=== PATIENT | female | born 1985 | race American Indian/Alaskan Native ===

== ENCOUNTER 2016-06-13 23:29 | Inpatient (IN) | payer MEDICAID, OTHER ==
[2016-06-13] MEDS ORDERED: Sodium Chloride 0.9% 10 ML Syringe FLUSH PRN (23:35)
[2016-06-13] MEDS ORDERED: Sodium Chloride 0.9% 1,000 ML IV SCH (23:45)
--- NOTE | 2016-06-14 00:05 | EDM.PDOC ---
ED HPI GENERAL MEDICAL PROBLEM - General Chief Complaint: Drug or Alcohol Abuse Stated Complaint: MED[facility] Time Seen by Provider: 06/13/16 23:33 Source of Information: Reports: Patient, EMS, Family (Sister arrived later and provided some information), Old records, RN notes reviewed History Limitations: Reports: Altered mental status - History of Present Illness INITIAL COMMENTS - FREE TEXT/NARRATIVE: 22.25 EMS arrival, patient unable to provide significant history because of drowsiness Chief complaint Overdose, decreased responsiveness HPI 30-year-old female with history of bipolar disorder and alcohol use disorder, previously admitted at [facility], recently moved into her own place. Was drinking alcohol earlier today and apparently the police were called her place. Neighbor found her this evening at home, decreased responsiveness with pills scattered on the floor in the bathroom and empty pill bottles around the patient. The pill bottles include her own prescriptions as well as those of her sister. Patient is either unable or unwilling to tell us why she took the overdose although she states that she blacked out. Whether time she took excess medications when she was drinking alcohol and "blacked out".. Would not confirm or deny suicidal plans. Very drowsy and hard to get a good history from her. EMS reports that she did have emesis on her clothing and her vital signs are normal. They found her quite drowsy and inserted a nasal trumpet. On arrival here she is able answer some questions but quickly falls asleep again. Her own prescriptions, the following empty bottles were found: #1: fluoxetine 20 mg, 60 tablets prescribed on June 08 #2: Trazodone 50 mg, 60 tablets prescribed June 08 #3: Ibuprofen 800 mg, 30 tablets prescribed May 29 Her sisters prescriptions, the following empty bottles were found: #4 extended-release venlafaxine, 150 mg, 28 tablets prescribed June 05 #5 clonidine 0.1 mg, 28 tablets prescribed June 05 #6 Remeron/mirtazapine 15 mg 14 tablets prescribed June 05 ED ROS GENERAL - Review of Systems Review Of Systems: Unable To Obtain (Altered mental status) ED EXAM, GENERAL - Physical Exam Exam: See Below Exam Limited By: Altered mental status General Appearance: lethargic, other (Vital signs are normal and stable, patient will answer with brief answers appropriately but quickly falls asleep again, no difficulty breathing, no hypoxia) Eye Exam: bilateral eye: EOMI, normal inspection Ears: normal external exam, normal canal Nose: normal inspection, normal mucosa Throat/Mouth: Normal inspection, Normal oropharynx Head: atraumatic, normocephalic Neck: supple. No: lymphadenopathy (R), lymphadenopathy (L) Respiratory/Chest: no respiratory distress, lungs clear, normal breath sounds, no accessory muscle use Cardiovascular: normal peripheral pulses, regular rate, rhythm GI/Abdominal: normal bowel sounds, soft, non tender, no distention, no mass Back Exam: normal inspection Extremities: normal inspection Neurological: normal reflexes, inattentive (Drowsy), slow to respond Psychiatric: other (Drowsy unable to assess) Skin Exam: Warm, Dry, Intact, Normal color, No rash Course - Vital Signs Last Recorded V/S: Last Vital Signs Temp 35.5 C 06/13/16 23:29 Pulse 104 H 06/13/16 23:29 Resp 14 06/13/16 23:29 BP 104/65 06/13/16 23:29 Pulse Ox 90 L 06/13/16 23:29 - Orders/Labs/Meds Orders: Active Orders 24 hr Category Date Time Status Cardiac Monitoring [RC] .As Directed Care 06/13/16 23:35 Active EKG Documentation Completion [RC] ASDIRECTED Care 06/13/16 23:36 Active Overnight Pulse Oximetry [RC] Click to Edit Care 06/13/16 23:36 Active Peripheral IV Care [RC] . DIRECTED Care 06/13/16 23:36 Active DRUG SCREEN, URINE [URCHEM] Stat Lab 06/13/16 23:35 Uncollected HCG QUALITATIVE,URINE [URCHEM] Stat Lab 06/13/16 23:35 Uncollected UA W/MICROSCOPIC [URIN] Stat Lab 06/13/16 23:34 Uncollected Sodium Chloride 0.9% [Normal Saline] 1,000 ml Med 06/13/16 23:45 Active IV ASDIRECTED Sodium Chloride 0.9% [Saline Flush] Med 06/13/16 23:35 Active 10 ml FLUSH ASDIRECTED PRN Peripheral IV Insertion Adult [OM.PC] Routine Oth 06/13/16 23:34 Ordered Pulse Oximetry Continuous Monitoring [OM.PC] Routine Oth 06/13/16 23:35 Ordered EKG 12 Lead [EK] Routine Ther 06/13/16 23:34 Ordered Medication Orders Sodium Chloride (Normal Saline) 1,000 mls @ 250 mls/hr IV ASDIRECTED MERE Last Admin: 06/13/16 23:43 Dose: 250 mls/hr Sodium Chloride (Saline Flush) 10 ml FLUSH ASDIRECTED PRN PRN Reason: Keep Vein Open Last Admin: 06/13/16 23:44 Dose: 10 ml Labs: Laboratory Tests 06/13/16 06/13/16 06/13/16 Range/Units 23:34 23:46 23:46 WBC 4.5 (4.5-11.0) K/uL RBC 4.66 (3.30-5.50) M/uL Hgb 13.9 (12.0-15.0) g/dL Hct 42.4 (36.0-48.0) % MCV 91 (80-98) fL MCH 30 (27-31) pg MCHC 33 (32-36) % Plt Count 284 (150-400) K/uL Sodium 145 (140-148) mmol/L Potassium 3.8 (3.6-5.2) mmol/L Chloride 107 (100-108) mmol/L Carbon Dioxide 27 (21-32) mmol/L Anion Gap 10.6 (5.0-14.0) mmol/L BUN 7 (7-18) mg/dL Creatinine 0.8 (0.6-1.0) mg/dL Est Cr Clr Drug Dosing TNP Estimated GFR (MDRD) > 60 (>60) Glucose 133 H (74-106) mg/dL Calcium 7.7 L (8.5-10.1) mg/dL Total Bilirubin 0.2 (0.2-1.0) mg/dL AST 20 (15-37) U/L ALT 38 (12-78) U/L Alkaline Phosphatase 80 (46-116) U/L Total Protein 7.5 (6.4-8.2) g/dL Albumin 3.8 (3.4-5.0) g/dL Globulin 3.7 H (2.3-3.5) g/dL Albumin/Globulin Ratio 1.0 L (1.2-2.2) Salicylates (2.0-20.0) mg/dL Acetaminophen 0.0 L (10.0-30.0) ug/mL Ethyl Alcohol mg/dL 06/13/16 06/13/16 Range/Units 23:46 23:46 WBC (4.5-11.0) K/uL RBC (3.30-5.50) M/uL Hgb (12.0-15.0) g/dL Hct (36.0-48.0) % MCV (80-98) fL MCH (27-31) pg MCHC (32-36) % Plt Count (150-400) K/uL Sodium (140-148) mmol/L Potassium (3.6-5.2) mmol/L Chloride (100-108) mmol/L Carbon Dioxide (21-32) mmol/L Anion Gap (5.0-14.0) mmol/L BUN (7-18) mg/dL Creatinine (0.6-1.0) mg/dL Est Cr Clr Drug Dosing Estimated GFR (MDRD) (>60) Glucose (74-106) mg/dL Calcium (8.5-10.1) mg/dL Total Bilirubin (0.2-1.0) mg/dL AST (15-37) U/L ALT (12-78) U/L Alkaline Phosphatase (46-116) U/L Total Protein (6.4-8.2) g/dL Albumin (3.4-5.0) g/dL Globulin (2.3-3.5) g/dL Albumin/Globulin Ratio (1.2-2.2) Salicylates 1.4 L (2.0-20.0) mg/dL Acetaminophen (10.0-30.0) ug/mL Ethyl Alcohol 118 mg/dL Meds: Medications Generic Name Dose Route Start Last Admin Trade Name Freq PRN Reason Stop Dose Admin Sodium Chloride 1,000 mls @ 250 mls/hr 06/13/16 23:45 06/13/16 23:43 Normal Saline IV 250 mls/hr ASDIRECTED MERE Administration Sodium Chloride 10 ml 06/13/16 23:35 06/13/16 23:44 Saline Flush FLUSH 10 ml ASDIRECTED PRN Administration Keep Vein Open - Re-Assessments/Exams Free Text/Narrative Re-Assessment/Exam: 06/14/16 00:11 -year-old female with multiple medication overdose of unknown quantity, including tricyclics and SSRIs With notified As expected she will need cardiac and WAREHOUSE CHECKER monitoring for 12 hours because of the extended release medications. Does respond to questions appropriate when she is woken up No signs of acute compromise at this time and she is breathing on her own. EKG shows sinus rhythm, it converted T waves suggest possible left atrial enlargement, rate 69, no acute changes otherwise. Intravenous saline started and labs ordered. Cardiac and oximeter monitoring 06/14/16 00:31 CBC normal glucose 133, x-rays normal except calcium 7.7 Salicylate and acetaminophen screen negative Urine drug screen pending At the level CXVIII Impression Alcohol intoxication Drug overdose, unknown intention Physician community relations officer contacted, ICU admission Departure - Departure Time of Disposition: 00:32 Disposition: Admitted As Inpatient 64 Condition: serious Clinical Impression: Alcoholic intoxication with complication, History of bipolar disorder Drug overdose, multiple drugs Qualifiers: Encounter type: initial encounter Injury intent: undetermined intent Qualified Code(s): T50.904A - Poisoning by unspecified drugs, medicaments and biological substances, undetermined, initial encounter - My Orders Last 24 Hours: My Active Orders 06/13/16 23:34 UA W/MICROSCOPIC [URIN] Stat Peripheral IV Insertion Adult [OM.PC] Routine EKG 12 Lead [EK] Routine 06/13/16 23:35 Cardiac Monitoring [RC] .As Directed DRUG SCREEN, URINE [URCHEM] Stat HCG QUALITATIVE,URINE [URCHEM] Stat Sodium Chloride 0.9% [Saline Flush] 10 ml FLUSH ASDIRECTED PRN Pulse Oximetry Continuous Monitoring [OM.PC] Routine 06/13/16 23:36 EKG Documentation Completion [RC] ASDIRECTED Overnight Pulse Oximetry [RC] Click to Edit Peripheral IV Care [RC] . DIRECTED 06/13/16 23:45 Sodium Chloride 0.9% [Normal Saline] 1,000 ml IV ASDIRECTED - Assessment/Plan Last 24 Hours: My Active Orders 06/13/16 23:34 UA W/MICROSCOPIC [URIN] Stat Peripheral IV Insertion Adult [OM.PC] Routine EKG 12 Lead [EK] Routine 06/13/16 23:35 Cardiac Monitoring [RC] .As Directed DRUG SCREEN, URINE [URCHEM] Stat HCG QUALITATIVE,URINE [URCHEM] Stat Sodium Chloride 0.9% [Saline Flush] 10 ml FLUSH ASDIRECTED PRN Pulse Oximetry Continuous Monitoring [OM.PC] Routine 06/13/16 23:36 EKG Documentation Completion [RC] ASDIRECTED Overnight Pulse Oximetry [RC] Click to Edit Peripheral IV Care [RC] . DIRECTED 06/13/16 23:45 Sodium Chloride 0.9% [Normal Saline] 1,000 ml IV ASDIRECTED
[2016-06-14] MEDS: Sodium Chloride 0.9% 1,000 ML IV SCH ×3 (02:00→09:53)
--- NOTE | 2016-06-14 02:55 | HP ---
IDENTIFYING DATA: Halle Dumont is a 30-year-old female from [place]. CHIEF COMPLAINT: Drug ingestion. HISTORY OF PRESENT ILLNESS: This adult female has a noted history of chronic depressive illness with previous suicidal ideation with methamphetamine and depressive presentation. She was seen in the emergency room at [facility] one month ago and transferred to [facility] for psychiatric care and discharged after short inpatient stay. She was instructed to arrange follow up with counseling services at [facility]; however, 1st available appointment is noted to be in late July. She reports she was discharged on fluoxetine and trazodone and is using no other medications. She does admit to drinking unspecified amount of alcohol this evening. She had a blackout, and under the influence of alcohol, ingested an unknown number and types of medications, pill bottles that arrived with the patient included her empty fluoxetine and trazodone bottles as well as venlafaxine, clonidine, and Remeron prescriptions used by family members. She is unsure whether she did in fact ingest these medications, has no remembrance of the events of this evening. She reports she has been feeling sad. She had a verbal argument with her sister this evening and sister and her four children left the household. She reportedly was found by a neighbor in a minimally responsive state and emergency medical personnel were summoned at which time, she was transferred to the emergency room for admission. PAST MEDICAL HISTORY: Noted history of substance abuse including methamphetamine and alcohol. She denies use of illicit drugs over the last month. Does admit to alcohol use. She is a G4 female with children ranging in age from 1-6, they currently reside in the household with her. She denies other chronic health problems, specifically denies hypertension, diabetes, cardiac disease, or respiratory disease. HABITS: She is a user of tobacco less than 1/2 pack per day. Caffeine intake is said to be several bottles of carbonated beverages daily. Alcohol use is intermittent though with binge drinking pattern. IMMUNIZATIONS: Status is unknown. SOCIAL HISTORY: She resides with a sister and their children in the [place] [facility]. 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 FAMILY HISTORY: Unable to provide factual information. REVIEW OF SYSTEMS: NEUROLOGIC: No reports of previous strokes or seizures. She denies headaches or visual disturbance. CARDIAC: Denies hypertension, diabetes, or congenital heart disease. RESPIRATORY: No shortness of breath, chest pain, wheeze, or cough. GI: Occasional dyspepsia admitted to by the patient. No current abdominal pain or nausea. Reports of emesis at the household were noted by responding medical staff. : Last menses presented approximately 1-2 weeks ago and normal in presentation. Denies current . MUSCULOSKELETAL: Without arthralgias. PHYSICAL EXAMINATION: GENERAL: Appearance is that of a somnolent, arousable young female, in no acute respiratory distress is noted. VITAL SIGNS: Initial vitals, temperature 35.5, pulse 104, respiratory rate 14, with O2 sats of 90% on room air. Blood pressure 104/65. HEENT: Seems to show reasonable hearing acuity canals and TMs are normal. Pupils are reactive to light and direct and consensual response. She is somnolent and ocular gaze is dysconjugate. No facial asymmetry is noted. Oral mucosa is moist and pink. No perioral cyanosis. NECK: No adenopathy or thyromegaly. Brisk carotid pulses. No bruits or JVD. No nuchal rigidity. LUNGS: Clear resonant, non-tachypneic with easy respiratory effort. HEART: Regular without murmurs or gallops noted. ABDOMEN: Soft and nontender. No obvious organomegaly. /RECTAL: Omitted. EXTREMITIES: Warm and pink. No pitting edema. Nondiaphoretic. No cyanosis. Good radial and posterior tibial pulses. No ischemic skin changes. Brisk capillary refill. The patient is somnolent, arousable, oriented to place and person, disoriented to time, able to provide limited factual information with amnesia surrounding the events of her drug ingestion. LABORATORY DATA: WBC 4.5, hemoglobin 13.9, hematocrit 42.4, platelet count 284,000. Sodium 145, potassium 3.8, BUN 7, creatinine 0.8, glucose 133, calcium 7.7, alkaline phosphatase 80, AST 20. Salicylate level low therapeutic range at 1.4. Acetaminophen level is zero. Ethyl alcohol level is noted to be at 0.118. The patient currently unable to provide urine sample for drug screen, this is pending. IMPRESSIONS: 1. Multidrug ingestion expected with potential ingestion of SSRIs/SNAs by evidence found at the scene. 2. History of chronic alcohol abuse with binge drinking pattern. 3. History of methamphetamine use, the patient denies current use. PLAN: The patient is admitted to the ICU for continued cardiac monitoring. We will continue with telemetry and monitor continuous pulse oximetry. Provide sips of liquids and dietary intake as tolerated as well as O2 if necessary for hypoxia. IV fluids will include normal saline. Urine drug screen to be collected and run when able. The patient appears quite somnolent and cooperative; however, if combative or threatening behavior develops, we will need to consider placement of 72-hour hold. We will request behavioral health assessment in the morning to evaluate for potential inpatient versus outpatient cares. If physical status is stable at 18 hours, would anticipate discharge from acute inpatient hospital stay. DISPOSITION: To inpatient psychiatric or home with outpatient followup status. Alberto Pearson MD /[id number]
--- NOTE | 2016-06-14 08:34 | PN ---
DATE OF SERVICE: 06/14/2016 SUBJECTIVE: A 30-year-old female with a history of chronic depressive illness, as well as substance abuse, and alcohol abuse, was admitted in the early childhood hours following multidrug ingestion. She remains somnolent, primarily sleeping through the night. No restless, agitated, or combative behavior. She notes mild abdominal upset this morning. She denies pain or shortness of breath. OBJECTIVE: VITAL SIGNS: Blood pressure 83/55, respiratory rate 16, and O2 saturations 95% on supplemental O2 at 2 L/minute by nasal cannula, heart rate 72 with normal sinus rhythm maintained by cardiac monitoring. GENERAL: She is oriented to person and place. LUNGS: Clear. HEART: Regular without murmurs or gallops. ABDOMEN: Soft and nontender. No organomegaly. LABORATORY DATA: Unable yet to provide urine for a urine drug screen. IMPRESSION AND PLAN: 1. Multidrug ingestion in the adult female with known history of chronic depression. We will request Psychology review today to discuss disposition. If hemodynamics status remain stable over the next 6 to 12 hours, discharge from acute medical setting would be reasonable, need to decide on followup for behavioral health issues. 2. History of substance abuse. The patient had reported abstinence from use of methamphetamines since [facility]. She does admit to binge drinking with alcohol use yesterday and noted blood alcohol level of 0.118. Alberto Pearson MD /[id number]
--- NOTE | 2016-06-14 10:12 | PCM.PN ---
- General Info Date of Service: 06/14/16 - Review of Systems General: Reports: No Symptoms Pulmonary: Reports: no symptoms Cardiovascular: Reports: No Symptoms Gastrointestinal: Reports: No symptoms Neurological: Reports: No Symptoms Psychiatric: Reports: depression, suicidal ideation Systems Review Comment:: This patient is a 30-year-old woman who was admitted through the emergency department following a drug overdose and apparent suicide attempt. She has a known history of depression and recent suicide attempt. She remains fairly lethargic and is unable to provide significant history at this time. She has remained hemodynamically stable and has been afebrile. - Patient Data Vitals - most recent: Last Vital Signs Temp 98.6 F 06/14/16 08:00 Pulse 67 06/14/16 09:00 Resp 18 06/14/16 09:00 BP 94/62 06/14/16 09:00 Pulse Ox 98 06/14/16 09:00 Weight - most recent: 200 lb I&O - last 24 hours: Intake & Output 06/13/16 06/14/16 06/14/16 22:59 06:59 14:59 Intake Total 619 Balance 619 Med Orders - Current: Current Medications Sodium Chloride (Normal Saline) 1,000 mls @ 125 mls/hr IV ASDIRECTED MERE Last Admin: 06/14/16 09:53 Dose: 125 mls/hr Sodium Chloride (Saline Flush) 10 ml FLUSH ASDIRECTED PRN PRN Reason: Keep Vein Open Last Admin: 06/13/16 23:44 Dose: 10 ml Discontinued Medications Sodium Chloride (Normal Saline) 1,000 mls @ 250 mls/hr IV ASDIRECTED [facility] Last Admin: 06/13/16 23:43 Dose: 250 mls/hr - Exam General: lethargic Lungs: Clear to auscultation, Normal respiratory effort Cardiovascular: Regular Rate, Regular Rhythm, No Murmurs Abdomen: bowel sounds present, soft, no tenderness, no distension Extremities: no edema Skin: warm, dry, intact - Problem List Review Problem List Initiated/Reviewed/Updated: Yes - Plan Plan:: ASSESSMENT AND PLAN POLYDRUG OVERDOSE SUICIDE ATTEMPT-amounts and specific medication unknown, urine drug screen is still pending. Overall she is been hemodynamically stable since admission, blood pressure somewhat borderline but has responded to IV fluids. -Psychological assessment pending -Urine drug screen pending -Will likely require inpatient psychiatric assessments and treatment
[2016-06-14 16:13] VITALS: BP 103/64
--- NOTE | 2016-06-14 17:42 | PCM.DCSUM1 ---
Discharge Summary - Hospital Course Brief History: This patient is a 30-year-old woman who is admitted through the emergency department following a drug overdose and apparent suicide attempt. - Discharge Data Discharge Date: 06/14/16 Discharge Disposition: Home, Self-Care 01 Condition: Fair - Discharge Diagnosis/Problem(s) (1) Drug overdose, multiple drugs SNOMED Code(s): 55504418 ICD Code: T50.901A - POISONING BY UNSP DRUG/MEDS/BIOL SUBST, ACCIDENTAL, INIT Status: Acute Current Visit: Yes Qualifiers: Encounter type: initial encounter Injury intent: undetermined intent Qualified Code(s): T50.904A - Poisoning by unspecified drugs, medicaments and biological substances, undetermined, initial encounter (2) Alcoholic intoxication with complication SNOMED Code(s): 24734274 ICD Code: F10.929 - ALCOHOL USE, UNSPECIFIED WITH INTOXICATION, UNSPECIFIED Status: Acute Current Visit: Yes (3) History of bipolar disorder SNOMED Code(s): 792621898 ICD Code: Z86.59 - PERSONAL HISTORY OF OTHER MENTAL AND BEHAVIORAL DISORDERS Status: Acute Current Visit: Yes - Patient Summary/Data Hospital Course: Ms. Dumont is a 30-year-old woman who was brought into the emergency department by EMS after apparent polydrug overdose in a suicide attempt. She was admitted to the hospital to the intensive care unit for monitoring and given IV fluids for hydration. Initially she was very lethargic and sedated but later became alert and interactive. She was hemodynamically stable and cleared medically from the overdose. Mental health evaluation was obtained and she was felt to be safe for discharge to home with outpatient mental health followup. Followup appointment should be scheduled with her primary care provider within one week. Activity will be as tolerated and she will resume her usual diet. - Patient Instructions Diet: Usual Diet as Tolerated Activity: As Tolerated Other/Special Instructions: Schedule followup appointment with primary care provider within one week. Schedule followup with mental health as recommended by mental health evaluation. - Discharge Plan Home Medications: Home Meds FLUoxetine [PROzac] 40 mg PO DAILY 06/14/16 [History] Ibuprofen 800 mg PO TID PRN 06/14/16 [History] traZODone 100 mg PO BEDTIME 06/14/16 [History] Referrals: PCP,None [Primary Care Provider] - - Patient Data Vitals - Most Recent: Last Vital Signs Temp 98.6 F 06/14/16 08:00 Pulse 65 06/14/16 17:37 Resp 20 06/14/16 16:35 BP 103/64 06/14/16 16:35 Pulse Ox 90 L 06/14/16 16:35 Weight - Most Recent: 200 lb I&O - Last 24 hours: Intake & Output 06/14/16 06/14/16 06/14/16 06:59 14:59 22:59 Intake Total 619 360 Output Total 850 Balance 619 -490 Lab Results - Last 24 hrs: Laboratory Results - last 24 hr 06/14/16 06/14/16 06/14/16 Range/Units 13:13 13:13 13:13 Urine Color Yellow Urine Appearance Slightly cloudy Urine pH 6.0 (4.5-8.0) Ur Specific [place] 1.020 (1.008-1.030) Urine Protein Negative (NEGATIVE) mg/dL Urine Glucose (UA) Normal (NEGATIVE) mg/dL Urine Ketones Negative (NEGATIVE) mg/dL Urine Occult Blood Negative (NEGATIVE) Urine Nitrite Negative (NEGATIVE) Urine Bilirubin Negative (NEGATIVE) Urine Urobilinogen Normal (NORMAL) mg/dL Ur Leukocyte Esterase Negative (NEGATIVE) Urine RBC Not seen (0-5) Urine WBC 0-5 (0-5) Ur Epithelial Cells Rare Amorphous Sediment Few Urine Bacteria Rare Urine Mucus Few Urine HCG, Qual Negative Urine Opiates Screen Negative (NEGATIVE) Ur Oxycodone Screen Negative (NEGATIVE) Urine Methadone Screen Negative (NEGATIVE) Ur Propoxyphene Screen Negative (NEGATIVE) Ur Barbiturates Screen Negative (NEGATIVE) Ur Tricyclics Screen Negative (NEGATIVE) Ur Phencyclidine Scrn Negative (NEGATIVE) Ur Amphetamine Screen Negative (NEGATIVE) U Methamphetamines Scrn Negative (NEGATIVE) Urine MDMA Screen Negative (NEGATIVE) U Benzodiazepines Scrn Negative (NEGATIVE) U Cocaine Metab Screen Negative (NEGATIVE) U Marijuana (THC) Screen Negative (NEGATIVE) Med Orders - Current: Current Medications Sodium Chloride (Normal Saline) 1,000 mls @ 125 mls/hr IV ASDIRECTED MERE Last Admin: 06/14/16 09:53 Dose: 125 mls/hr Sodium Chloride (Saline Flush) 10 ml FLUSH ASDIRECTED PRN PRN Reason: Keep Vein Open Last Admin: 06/13/16 23:44 Dose: 10 ml Discontinued Medications Sodium Chloride (Normal Saline) 1,000 mls @ 250 mls/hr IV ASDIRECTED MERE Last Admin: 06/13/16 23:43 Dose: 250 mls/hr *Q Meaningful Use (DIS) - VTE *Q VTE Criteria *Q: - Stroke *Q Stroke Criteria *Q: - AMI *Q AMI Criteria *Q:
== END 2016-06-14 18:38 | disposition home or self-care (01) | DRG 918 ==
LOC: JP.ED 23:29 → JP.ICU 06-14 00:33
PROVIDERS: ADMIT Family Medicine; ATTEND Hospitalist
DX: T50.902A Poisoning by unspecified drugs, medicaments and biological substances, intentional self-harm, initial encounter (principal); F10.129 Alcohol abuse with intoxication, unspecified; Z86.59 Personal history of other mental and behavioral disorders; F17.210 Nicotine dependence, cigarettes, uncomplicated; Y90.5 Blood alcohol level of 100-119 mg/100 ml; F32.9 Major depressive disorder, single episode, unspecified; Z87.898 Personal history of other specified conditions
CPT/HCPCS: 36415; 80053; 80305; 81001; 81025; 85027; 93005; 96360; 96361; 99285; 99285-25; G0480; J7040; J7050

== ENCOUNTER 2018-12-01 18:23 | Emergency (ER) | payer MEDICAID ==
[2018-12-01 18:55] VITALS: BP 117/71; PULSE 84
--- NOTE | 2018-12-01 19:09 | EDM.PDOC ---
ED HPI GENERAL MEDICAL PROBLEM - General Chief Complaint: General Stated Complaint: FEVER,SORE THROAT,BODY ACHES Time Seen by Provider: 12/01/18 19:03 Source of Information: Reports: Patient, Family, RN Notes Reviewed History Limitations: Reports: No Limitations - History of Present Illness INITIAL COMMENTS - FREE TEXT/NARRATIVE: 33-year-old female presents emergency department today complaint of fever and chills body aches sore throat and cough that has been going on for about 5 days , denies any sick contacts denies flu shot - Related Data Allergies Allergy/AdvReac Type Severity Reaction Status Date / Time No Known Allergies Allergy Verified 12/01/18 18:55 Home Meds: Home Meds NK [No Known Home Meds] 12/01/18 [History] Past Medical History HEENT History: Reports: 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 Unable to obtain if it was a suicide attempt. 05/09/2016 Endocrine/Metabolic History: Reports: Obesity/BMI 30+ - Infectious Disease History Infectious Disease History: Reports: Chicken Pox - Past Surgical History Head Surgeries/Procedures: Reports: None HEENT Surgical History: Reports: Eye Surgery Endocrine Surgical History: Reports: None Dermatological Surgical History: Reports: None Social & Family History - Tobacco Use Smoking Status *Q: Current Every Day Smoker Years of Tobacco use: 10 Packs/Tins Daily: 0.2 Second Hand Smoke Exposure: No - Caffeine Use Caffeine Use: Reports: Soda - Recreational Drug Use Recreational Drug Use: No ED ROS GENERAL - Review of Systems Review Of Systems: See Below Constitutional: Reports: Fever, Chills, Other (Body aches) HEENT: Reports: Throat Pain, Throat Swelling Respiratory: Reports: Cough Cardiovascular: Reports: No Symptoms GI/Abdominal: Reports: No Symptoms : Reports: No Symptoms ED EXAM, GENERAL - Physical Exam Exam: See Below Free Text/Narrative:: General: Female, not in any distress, alert and oriented x3 HEENT: head is atraumatic normocephalic, eyes pupils equal round reactive to light, sclera clear no conjunctivitis appreciated. Ears tympanic membranes clear and pereira landmarks and light reflex are present bilaterally canals are clear. Nose no septal deviation, nares are clear, no blood present. Mouth mucosa is moist and pink no erythema or exudate noted in soft palate, tongue is midline uvula is midline, dentition is intact. Neck: Supple no thyromegaly no tracheal deviation. Nodes: Cervical nodes subclavicular nodes nontender no palpable lymphadenopathy noted. Lungs: clear to auscultation bilaterally with symmetrical respirations, no adventitious noise appreciated. CV: Regular rate and rhythm S1 and S2 appreciated no murmurs rubs or gallops noted. Abdomen: Soft, nontender, no palpable masses or organomegaly appreciated, no distention no guarding bowel sounds are present, . Neuro: GCS 15 Skin: Warm and dry, intact Course - Vital Signs Last Recorded V/S: Last Vital Signs Temp 97.7 F 12/01/18 18:56 Pulse 84 12/01/18 18:56 Resp 16 12/01/18 18:56 BP 117/71 12/01/18 18:56 Pulse Ox 94 L 12/01/18 18:56 - Orders/Labs/Meds Orders: Active Orders 24 hr Category Date Time Status CULTURE STREP A CONFIRMATION [] Stat Lab 12/01/18 19:26 Results STREP SCRN A RAPID W CULT CONF [] Stat Lab 12/01/18 19:26 Results Labs: Laboratory Tests 12/01/18 12/01/18 Range/Units 19:15 19:15 WBC 8.7 (4.5-11.0) K/uL RBC 4.71 (3.30-5.50) M/uL Hgb 12.5 (12.0-15.0) g/dL Hct 40.0 (36.0-48.0) % MCV 85 (80-98) fL MCH 27 (27-31) pg MCHC 31 L (32-36) % Plt Count 355 (150-400) K/uL Sodium 139 L (140-148) mmol/L Potassium 3.8 (3.6-5.2) mmol/L Chloride 103 (100-108) mmol/L Carbon Dioxide 26 (21-32) mmol/L Anion Gap 13.8 (5.0-14.0) mmol/L BUN 13 D (7-18) mg/dL Creatinine 0.9 (0.6-1.0) mg/dL Est Cr Clr Drug Dosing 72.17 mL/min Estimated GFR (MDRD) > 60 (>60) Glucose 101 (74-106) mg/dL Calcium 8.7 (8.5-10.1) mg/dL Total Bilirubin 0.2 (0.2-1.0) mg/dL AST 14 L (15-37) U/L ALT 28 (12-78) U/L Alkaline Phosphatase 93 (46-116) U/L Lactate Dehydrogenase 178 (82-234) U/L Total Protein 7.7 (6.4-8.2) g/dL Albumin 3.7 (3.4-5.0) g/dL Globulin 4.0 H (2.3-3.5) g/dL Albumin/Globulin Ratio 0.9 L (1.2-2.2) Departure - Departure Time of Disposition: 20:20 Disposition: Home, Self-Care 01 Condition: Fair Clinical Impression: Viral syndrome - Discharge Information Referrals: Anitha Marcano I DAYCARE TEACHER [Primary Care Provider] - Forms: ED Department Discharge Additional Instructions: continue to use Tylenol or Motrin as needed for fever control, Please followup with your primary care provider in 3-5 days if not better, please call return to the emergency department with worsening of symptoms. - My Orders Last 24 Hours: My Active Orders 12/01/18 19:26 CULTURE STREP A CONFIRMATION [RM] Stat STREP SCRN A RAPID W CULT CONF [RM] Stat - Assessment/Plan Last 24 Hours: My Active Orders 12/01/18 19:26 CULTURE STREP A CONFIRMATION [RM] Stat STREP SCRN A RAPID W CULT CONF [RM] Stat Plan: Assessment Acuity = acute Site and laterality = viral syndrome Etiology = unknown Manifestations = fever, body aches Location of injury = Home Lab values = CBC, CMP, LDH all within normal limits rapid strep is negative cultures pending influenza negative chest x-ray no acute process Plan Recommend symptomatic care at this time follow-up primary care 3-5 days if not better This note was dictated using [employer] voice recognition software please call with any questions on syntax or grammar.
--- NOTE | 2018-12-01 20:16 | CRLCR ---
INDICATION: Fever and cough. TECHNIQUE: PA and lateral. COMPARISON: None. FINDINGS: Lungs and pleural spaces clear. Heart size and pulmonary vasculature within normal limits. No significant osseous abnormality. IMPRESSION: Negative chest. Dictated by Gustavo Caba MD @ Dec 01 2018 8:13PM Signed by Dr. Gustavo Caba @ Dec 01 2018 8:13PM
== END 2018-12-01 20:25 | disposition home or self-care (01) ==
LOC: JP.ED 18:23
DX: B34.9 Viral infection, unspecified (principal); F17.210 Nicotine dependence, cigarettes, uncomplicated; E66.9 Obesity, unspecified; Z68.37 Body mass index [BMI] 37.0-37.9, adult
CPT/HCPCS: 36415; 71046; 80053; 83615; 85027; 87081; 87804; 87804-59; 87880-QW; 99282; 99283-25

== ENCOUNTER 2019-01-17 20:02 | Inpatient (IN) | payer MEDICAID ==
--- NOTE | 2019-01-17 21:03 | EDM.PDOC ---
ED HPI GENERAL MEDICAL PROBLEM - General Chief Complaint: Upper Extremity Injury/Pain Stated Complaint: FELL HURT ARM Time Seen by Provider: 01/17/19 21:32 - History of Present Illness INITIAL COMMENTS - FREE TEXT/NARRATIVE: 33 years old female patient presented with chief complaint of erythema, swelling and tenderness of both antecubital fossa. Worse on the right side. Patient stated that she has been sober for almost 1 year from meth . she recently relapsed and has been shooting and using IV drugs for the last few days. Methamphetamine. Denies any other drugs. Denies any fever. Stated that she is not able to move her right elbow. Denies any chest pain or shortness breath. Denies any palpitation. Denies any abdominal pain diarrhea or constipation. Denies any urinary symptom. 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 not to long ago. Unable to obtain if it was a suicide attempt. 05/09/2016 Endocrine/Metabolic History: Reports: Obesity/BMI 30+ - Infectious Disease History Infectious Disease History: Reports: Chicken Pox - Past Surgical History Head Surgeries/Procedures: Reports: None HEENT Surgical History: Reports: Eye Surgery Endocrine Surgical History: Reports: None Dermatological Surgical History: Reports: None Social & Family History - Tobacco Use Smoking Status *Q: Current Every Day Smoker Years of Tobacco use: 14 Packs/Tins Daily: 0.5 Used Tobacco, but Quit: No Second Hand Smoke Exposure: Yes - Caffeine Use Caffeine Use: Reports: Soda - Recreational Drug Use Recreational Drug Use: Yes Drug Use in Last 12 Months: Yes Recreational Drug Type: Reports: Methamphetamine Recreational Drug Use Frequency: Rarely Review of Systems - Review of Systems Review Of Systems: Comprehensive ROS is negative, except as noted in HPI. ED EXAM, GENERAL - Physical Exam Exam: See Below Exam Limited By: No Limitations General Appearance: Alert, WD/WN, No Apparent Distress Nose: Normal Inspection, Normal Mucosa, No Blood Head: Atraumatic, Normocephalic Cardiovascular: Normal Peripheral Pulses, Regular Rate, Rhythm, No Edema, No Gallop, No JVD, No Murmur, No Rub GI/Abdominal: Normal Bowel Sounds, Soft, Non-Tender, No Organomegaly, No Distention, No Abnormal Bruit, No Mass Extremities: Other (Area of erythema, tenderness, induration, swelling of the right antecubital area. No discharge. CMS intact.) Neurological: Alert, Oriented, CN II-XII Intact, Normal Cognition, Normal Gait, Normal Reflexes, No Motor/Sensory Deficits Course - Vital Signs Last Recorded V/S: Last Vital Signs Temp 36.9 C 01/17/19 20:44 Pulse 105 H 01/17/19 20:44 Resp 16 01/17/19 20:44 BP 138/82 01/17/19 20:44 Pulse Ox 97 01/17/19 20:44 - Orders/Labs/Meds Orders: Active Orders 24 hr Category Date Time Status VL Duplex Upr Ext Veins Ltd Rt [US] Stat Exams 01/17/19 21:49 Ordered CULTURE BLOOD [BC] Urgent Lab 01/17/19 21:30 Received CULTURE BLOOD [BC] Urgent Lab 01/17/19 21:30 Received DRUG SCREEN, URINE [URCHEM] Urgent Lab 01/17/19 21:08 Ordered Enoxaparin [Lovenox] Med 01/17/19 23:00 Once 93.4 mg SUBCUT ONETIME ONE Morphine Med 01/17/19 23:03 Once 4 mg IVPUSH ONETIME ONE Sodium Chloride 0.9% [Normal Saline] 1,000 ml Med 01/17/19 21:45 Active IV ASDIRECTED Vancomycin 1.5 gm Med 01/17/19 22:56 Ordered Sodium Chloride 0.9% [Normal Saline] 250 ml IV ONETIME cefTRIAXone [Rocephin] 2 gm Med 01/17/19 22:59 Ordered Sodium Chloride 0.9% [Normal Saline] 50 ml IV ONETIME Blood Culture x2 Reflex Set [OM.PC] Urgent Oth 01/17/19 21:06 Ordered Medication Orders Enoxaparin Sodium (Lovenox) 93.4 mg SUBCUT ONETIME ONE Stop: 01/17/19 23:01 Sodium Chloride (Normal Saline) 1,000 mls @ 999 mls/hr IV ASDIRECTED MERE Last Admin: 01/17/19 21:41 Dose: 999 mls/hr Ceftriaxone Sodium 2 gm/ (Sodium Chloride) 50 mls @ 100 mls/hr IV ONETIME ONE Stop: 01/17/19 23:28 Vancomycin HCl 1.5 gm/ Sodium (Chloride) 250 mls @ 150 mls/hr IV ONETIME ONE Stop: 01/18/19 00:35 Morphine Sulfate (Morphine) 4 mg IVPUSH ONETIME ONE Stop: 01/17/19 23:04 Labs: Laboratory Tests 01/17/19 01/17/19 01/17/19 Range/Units 21:06 21:30 21:30 WBC 13.3 H (4.5-11.0) K/uL RBC 4.61 (3.30-5.50) M/uL Hgb 12.3 (12.0-15.0) g/dL Hct 39.2 (36.0-48.0) % MCV 85 (80-98) fL MCH 27 (27-31) pg MCHC 31 L (32-36) % Plt Count 313 (150-400) K/uL Neut % (Auto) 78 H (36-66) % Lymph % (Auto) 10 L (24-44) % [place] % (Auto) 8 H (2-6) % Eos % (Auto) 5 H (2-4) % Baso % (Auto) 0 (0-1) % ESR 35 H (0-25) mm/hr Sodium 138 L (140-148) mmol/L Potassium 3.6 (3.6-5.2) mmol/L Chloride 103 (100-108) mmol/L Carbon Dioxide 25 (21-32) mmol/L Anion Gap 13.6 (5.0-14.0) mmol/L BUN 13 (7-18) mg/dL Creatinine 0.8 (0.6-1.0) mg/dL Est Cr Clr Drug Dosing 81.19 mL/min Estimated GFR (MDRD) > 60 (>60) Glucose 104 (74-106) mg/dL Lactic Acid 1.3 (0.4-2.0) mmol/L Calcium 8.6 (8.5-10.1) mg/dL Total Bilirubin 0.3 (0.2-1.0) mg/dL AST 15 (15-37) U/L ALT 28 (12-78) U/L Alkaline Phosphatase 100 (46-116) U/L C-Reactive Protein 10.79 H (0.0-0.3) mg/dL Total Protein 7.9 (6.4-8.2) g/dL Albumin 3.6 (3.4-5.0) g/dL Globulin 4.3 H (2.3-3.5) g/dL Albumin/Globulin Ratio 0.8 L (1.2-2.2) Meds: Medications Generic Name Dose Route Start Last Admin Trade Name Freq PRN Reason Stop Dose Admin Enoxaparin Sodium 93.4 mg 01/17/19 23:00 Lovenox SUBCUT 01/17/19 23:01 ONETIME ONE Sodium Chloride 1,000 mls @ 999 mls/hr 01/17/19 21:45 01/17/19 21:41 Normal Saline IV 999 mls/hr ASDIRECTED MERE Administration Ceftriaxone Sodium 2 gm/ 50 mls @ 100 mls/hr 01/17/19 22:59 Sodium Chloride IV 01/17/19 23:28 ONETIME ONE Vancomycin HCl 1.5 gm/ Sodium 250 mls @ 150 mls/hr 01/17/19 22:56 Chloride IV 01/18/19 00:35 ONETIME ONE Morphine Sulfate 4 mg 01/17/19 23:03 Morphine IVPUSH 01/17/19 23:04 ONETIME ONE Discontinued Medications Generic Name Dose Route Start Last Admin Trade Name Freq PRN Reason Stop Dose Admin Sodium Chloride 1,000 mls @ 999 mls/hr 01/17/19 21:15 Normal Saline IV .BOLUS MERE Morphine Sulfate 4 mg 01/17/19 21:43 01/17/19 21:48 Morphine IVPUSH 01/17/19 21:44 4 mg ONETIME ONE Administration - Radiology Interpretation Free Text/Narrative:: Patient was seen and examined shortly after arrival. Stable. Lab reviewed. Given 1 L normal saline bolus, 4 mg IV morphine 2. Lab and imaging reviewed with the patient. Ultrasound shows DVT and some fluid collection possible early abscess formation. Elevated white count his left shift. Normal lactic acid, afebrile. No sign of severe sepsis or septic shock at this point. Started on vancomycin and Rocephin. Also given 1 dose of Lovenox 1 mg/kg. Case was discussed with Dr. Bonilla hospitalist electrical control assembler and he accepted admission for further management. Patient agrees with the plan. Stable for admission. Departure - Departure Time of Disposition: 23:04 Disposition: Admitted As Inpatient 64 Condition: Good Clinical Impression: DVT (deep venous thrombosis), Cellulitis, IV drug user - Discharge Information *PRESCRIPTION DRUG MONITORING PROGRAM REVIEWED*: Not Applicable Referrals: Anitha Marcano I FORKLIFT TECHNICIAN [Primary Care Provider] - Forms: ED Department Discharge - My Orders Last 24 Hours: My Active Orders 01/17/19 21:06 Blood Culture x2 Reflex Set [OM.PC] Urgent 01/17/19 21:08 DRUG SCREEN, URINE [URCHEM] Urgent 01/17/19 21:30 CULTURE BLOOD [BC] Urgent CULTURE BLOOD [BC] Urgent 01/17/19 21:45 Sodium Chloride 0.9% [Normal Saline] 1,000 ml IV ASDIRECTED 01/17/19 21:49 VL Duplex Upr Ext Veins Ltd Rt [US] Stat 01/17/19 22:56 Vancomycin 1.5 gm Sodium Chloride 0.9% [Normal Saline] 250 ml IV ONETIME 01/17/19 22:59 cefTRIAXone [Rocephin] 2 gm Sodium Chloride 0.9% [Normal Saline] 50 ml IV ONETIME 01/17/19 23:00 Enoxaparin [Lovenox] 93.4 mg SUBCUT ONETIME ONE 01/17/19 23:03 Morphine 4 mg IVPUSH ONETIME ONE - Assessment/Plan Last 24 Hours: My Active Orders 01/17/19 21:06 Blood Culture x2 Reflex Set [OM.PC] Urgent 01/17/19 21:08 DRUG SCREEN, URINE [URCHEM] Urgent 01/17/19 21:30 CULTURE BLOOD [BC] Urgent CULTURE BLOOD [BC] Urgent 01/17/19 21:45 Sodium Chloride 0.9% [Normal Saline] 1,000 ml IV ASDIRECTED 01/17/19 21:49 VL Duplex Upr Ext Veins Ltd Rt [US] Stat 01/17/19 22:56 Vancomycin 1.5 gm Sodium Chloride 0.9% [Normal Saline] 250 ml IV ONETIME 01/17/19 22:59 cefTRIAXone [Rocephin] 2 gm Sodium Chloride 0.9% [Normal Saline] 50 ml IV ONETIME 01/17/19 23:00 Enoxaparin [Lovenox] 93.4 mg SUBCUT ONETIME ONE 01/17/19 23:03 Morphine 4 mg IVPUSH ONETIME ONE
[2019-01-17] MEDS ORDERED: Sodium Chloride 0.9% 1,000 ML IV SCH ×2 (21:15→21:45)
[2019-01-17] MEDS ORDERED: Morphine 4 MG/ML Syringe IVPUSH ONE ×2 (21:43→23:03)
[2019-01-17] MEDS ORDERED: cefTRIAXone 2 GM in Sodium Chloride 0.9% 50 ML IV ONE (22:59)
[2019-01-17] MEDS ORDERED: Enoxaparin 100 MG/1 ML Syringe SUBCUT ONE (23:00)
[2019-01-17] MEDS ORDERED: Water For Injection, Sterile 20 ML ONE ×2 (23:15→23:18)
--- NOTE | 2019-01-17 23:26 | CRLUS ---
INDICATION: Right arm pain. COMPARISON: None available. FINDINGS: Ultrasound of the venous drainage of the right upper extremity shows no evidence of deep venous thrombosis. There is normal antegrade flow from the radial and ulnar veins superiorly through the subclavian and innominate veins. There is normal respiratory variation and compressibility of the veins. There is complete thrombosis of the right cephalic vein at the elbow, with nonocclusive thrombus just below the elbow and also extending superiorly into the mid-lower upper arm. The cephalic vein in the mid and upper arm is widely patent. There is widely patent, easily compressible basilic vein. The right internal jugular vein is widely patent. IMPRESSION: Superficial venous thrombosis of the right cephalic vein extending from below the elbow through the mid-lower portion of the upper arm. Occlusive thrombosis at the elbow, nonocclusive thrombus elsewhere. No sign of deep venous thrombosis of the right upper extremity. No sign of superficial thrombosis involving the basilic vein. Dictated by Vasu Appiah MD @ Jan 17 2019 11:17PM Signed by Dr. Vasu Appiah @ Jan 17 2019 11:23PM
[2019-01-17] MEDS ORDERED: Morphine 2 MG/ML Syringe IVPUSH PRN (23:59)
[2019-01-18] MEDS: Sodium Chloride 0.9% 1,000 ML IV SCH ×4 (00:34→23:31)
[2019-01-18] MEDS: Ibuprofen 600 MG Tab PO PRN ×3 (01:20→16:35)
[2019-01-18] MEDS: Morphine 4 MG/ML Syringe IVPUSH PRN ×2 (01:20→08:24)
--- NOTE | 2019-01-18 01:57 | HP ---
CHIEF COMPLAINT: Bilateral arm pain. HISTORY OF PRESENT ILLNESS: A 33-year-old who has had history of methamphetamine abuse in the past has been clean since September of 2017 up until just a few days ago when she started using IV methamphetamine in her antecubital areas. Started yesterday having swelling and discomfort of both antecubital fossae area with the right side worse than left. Came into the emergency room for further evaluation. She was evaluated by emergency room physician, who felt that she had cellulitis. We did an ultrasound. Initially, from the tech, it looked like a DVT in the right antecubital fossa or in the right arm, but from the radiologist's interpretation looked like superficial thrombophlebitis. The patient initially did receive Lovenox in the emergency room and was found to be just superficial thrombosis. There was soft tissue swelling. No evidence of definite abscess. I was asked to admit the patient for further evaluation and treatment for cellulitis. She did have symptoms on the left side also, but were not as pronounced. PAST MEDICAL HISTORY: She is G4. She has had hospitalization for chemical dependency and overdose in the past. She has had a history of alcohol and methamphetamine abuse. MEDICATIONS: Currently none. ALLERGIES: NONE. SOCIAL HISTORY: She does smoke cigarettes. She denies any current alcohol use, but does admit to the recent IV methamphetamine. FAMILY HISTORY: Unknown. REVIEW OF SYSTEMS: She has had some chills. No chest pain or trouble breathing. No nausea, vomiting, diarrhea, or constipation. No urinary problems reported. No swelling in her legs. She does have swelling in both arms with discomfort. No neurologic complaints reported. OBJECTIVE: VITAL SIGNS: Weight 93 kg. Temp 36.9, pulse 105, blood pressure 138/82, respiratory rate 16, O2 sat 97% on room air. GENERAL: The patient seems to be alert and oriented. Pharynx is clear. NECK: Supple. No adenopathy or thyromegaly. LUNGS: Clear. HEART: Regular without murmurs. ABDOMEN: Soft, nontender. No mass or organomegaly palpated. EXTREMITIES: Lower extremities: There is no edema or pain. No erythema. Did have erythema with swelling into both antecubital fossae, but the right side more pronounced than the left and hurts when she even tries to move her right arm. She does have discomfort in the antecubital fossae of both arms. The venous Doppler showed superficial venous thrombosis of the right cephalic vein extending from below the elbow through the midportion of the upper arm, but Radiology says no DVT was identified. LABORATORY DATA: White count 13.3, hemoglobin 12.3, platelets 313,000, 78% neutrophils, 10% lymphocytes, 8% monocytes. ESR was elevated at 35. Sodium 138, potassium 3.6, chloride 103, BUN is 13, creatinine 0.8, glucose 104. Liver functions were normal. C-reactive protein was elevated at 10.79. ASSESSMENT: 1. Cellulitis to bilateral antecubital fossae. The patient has been started on IV Rocephin and vancomycin in the emergency room, which will continue. We will admit her inpatient and transfer care to the Hospitalist Service. 2. Methamphetamine use, clean since September of 2017, but just recent use with a history of alcohol and methamphetamine abuse in the past. Alexander Bonilla MD /[id number]
[2019-01-18] MEDS: Acetaminophen 325 MG Tab PO PRN ×2 (04:41→17:40)
--- NOTE | 2019-01-18 10:03 | PCM.PN ---
- General Info Date of Service: 01/18/19 Subjective Update: There have been no acute events overnight following admission. Pain in the right antecubital fossa has improved a fair amount but she still has a fair amount of limitation with her range of motion. Temperature curve has normalized this morning. White blood cell count is about the same. No nausea or abdominal pain. Heart rate is slowly improving but blood pressure is trending down but remains in the normal range. Functional Status: Reports: Pain Controlled, Tolerating Diet - Review of Systems General: Reports: Fever Musculoskeletal: Reports: Arm Pain - Patient Data Vitals - Most Recent: Last Vital Signs Temp 36.2 C 01/18/19 07:00 Pulse 91 01/18/19 07:00 Resp 18 01/18/19 07:00 BP 105/52 L 01/18/19 07:00 Pulse Ox 95 01/18/19 07:00 Weight - Most Recent: 94.801 kg I&O - Last 24 Hours: Intake & Output 01/17/19 01/18/19 01/18/19 22:59 06:59 14:59 Intake Total 120 Output Total 600 Balance -480 Lab Results Last 24 Hours: Laboratory Results - last 24 hr 01/17/19 01/17/19 01/17/19 Range/Units 21:06 21:30 21:30 WBC 13.3 H (4.5-11.0) K/uL RBC 4.61 (3.30-5.50) M/uL Hgb 12.3 (12.0-15.0) g/dL Hct 39.2 (36.0-48.0) % MCV 85 (80-98) fL MCH 27 (27-31) pg MCHC 31 L (32-36) % Plt Count 313 (150-400) K/uL Neut % (Auto) 78 H (36-66) % Lymph % (Auto) 10 L (24-44) % Weber % (Auto) 8 H (2-6) % Eos % (Auto) 5 H (2-4) % Baso % (Auto) 0 (0-1) % ESR 35 H (0-25) mm/hr Sodium 138 L (140-148) mmol/L Potassium 3.6 (3.6-5.2) mmol/L Chloride 103 (100-108) mmol/L Carbon Dioxide 25 (21-32) mmol/L Anion Gap 13.6 (5.0-14.0) mmol/L BUN 13 (7-18) mg/dL Creatinine 0.8 (0.6-1.0) mg/dL Est Cr Clr Drug Dosing 81.19 mL/min Estimated GFR (MDRD) > 60 (>60) Glucose 104 (74-106) mg/dL Lactic Acid 1.3 (0.4-2.0) mmol/L Calcium 8.6 (8.5-10.1) mg/dL Total Bilirubin 0.3 (0.2-1.0) mg/dL AST 15 (15-37) U/L ALT 28 (12-78) U/L Alkaline Phosphatase 100 (46-116) U/L C-Reactive Protein 10.79 H (0.0-0.3) mg/dL Total Protein 7.9 (6.4-8.2) g/dL Albumin 3.6 (3.4-5.0) g/dL Globulin 4.3 H (2.3-3.5) g/dL Albumin/Globulin Ratio 0.8 L (1.2-2.2) Urine Opiates Screen (NEGATIVE) Ur Oxycodone Screen (NEGATIVE) Urine Methadone Screen (NEGATIVE) Ur Propoxyphene Screen (NEGATIVE) Ur Barbiturates Screen (NEGATIVE) Ur Tricyclics Screen (NEGATIVE) Ur Phencyclidine Scrn (NEGATIVE) Ur Amphetamine Screen (NEGATIVE) U Methamphetamines Scrn (NEGATIVE) Urine MDMA Screen (NEGATIVE) U Benzodiazepines Scrn (NEGATIVE) U Cocaine Metab Screen (NEGATIVE) U Marijuana (THC) Screen (NEGATIVE) 01/18/19 01/18/19 01/18/19 Range/Units 00:36 04:30 04:30 WBC 13.6 H (4.5-11.0) K/uL RBC 4.35 (3.30-5.50) M/uL Hgb 11.5 L (12.0-15.0) g/dL Hct 37.4 (36.0-48.0) % MCV 86 (80-98) fL MCH 26 L (27-31) pg MCHC 31 L (32-36) % Plt Count 267 (150-400) K/uL Neut % (Auto) (36-66) % Lymph % (Auto) (24-44) % Weber % (Auto) (2-6) % Eos % (Auto) (2-4) % Baso % (Auto) (0-1) % ESR (0-25) mm/hr Sodium 134 L (140-148) mmol/L Potassium 3.6 (3.6-5.2) mmol/L Chloride 103 (100-108) mmol/L Carbon Dioxide 21 (21-32) mmol/L Anion Gap 13.6 (5.0-14.0) mmol/L BUN 5 L D (7-18) mg/dL Creatinine 0.7 (0.6-1.0) mg/dL Est Cr Clr Drug Dosing 92.79 mL/min Estimated GFR (MDRD) > 60 (>60) Glucose 124 H (74-106) mg/dL Lactic Acid (0.4-2.0) mmol/L Calcium 7.7 L (8.5-10.1) mg/dL Total Bilirubin (0.2-1.0) mg/dL AST (15-37) U/L ALT (12-78) U/L Alkaline Phosphatase (46-116) U/L C-Reactive Protein (0.0-0.3) mg/dL Total Protein (6.4-8.2) g/dL Albumin (3.4-5.0) g/dL Globulin (2.3-3.5) g/dL Albumin/Globulin Ratio (1.2-2.2) Urine Opiates Screen Presumptive positive H (NEGATIVE) Ur Oxycodone Screen Negative (NEGATIVE) Urine Methadone Screen Negative (NEGATIVE) Ur Propoxyphene Screen Negative (NEGATIVE) Ur Barbiturates Screen Negative (NEGATIVE) Ur Tricyclics Screen Negative (NEGATIVE) Ur Phencyclidine Scrn Negative (NEGATIVE) Ur Amphetamine Screen Presumptive positive H (NEGATIVE) U Methamphetamines Scrn Presumptive positive H (NEGATIVE) Urine MDMA Screen Presumptive positive H (NEGATIVE) U Benzodiazepines Scrn Negative (NEGATIVE) U Cocaine Metab Screen Negative (NEGATIVE) U Marijuana (THC) Screen Negative (NEGATIVE) Med Orders - Current: Current Medications Acetaminophen (Tylenol) 650 mg PO Q4H PRN PRN Reason: Fever Last Admin: 01/18/19 04:41 Dose: 650 mg Sodium Chloride (Normal Saline) 1,000 mls @ 999 mls/hr IV ASDIRECTED [facility] Last Admin: 01/17/19 21:41 Dose: 999 mls/hr Sodium Chloride (Normal Saline) 1,000 mls @ 125 mls/hr IV ASDIRECTED [facility] Last Admin: 01/18/19 08:22 Dose: 125 mls/hr Vancomycin HCl 1.5 gm/ Sodium (Chloride) 250 mls @ 150 mls/hr IV Q12H [facility] Ibuprofen (Motrin) 600 mg PO Q6H PRN PRN Reason: Pain Last Admin: 01/18/19 08:23 Dose: 600 mg Morphine Sulfate (Morphine) 4 mg IVPUSH Q1H PRN PRN Reason: Pain Last Admin: 01/18/19 08:24 Dose: 4 mg Ondansetron HCl (Zofran) 4 mg IV Q4H PRN PRN Reason: Nausea/Vomiting Discontinued Medications Enoxaparin Sodium (Lovenox) 93.4 mg SUBCUT ONETIME ONE Stop: 01/17/19 23:01 Last Admin: 01/17/19 23:15 Dose: 93.4 mg Sodium Chloride (Normal Saline) 1,000 mls @ 999 mls/hr IV [facility] Ceftriaxone Sodium 2 gm/ (Sodium Chloride) 50 mls @ 100 mls/hr IV ONETIME ONE Stop: 01/17/19 23:28 Last Admin: 01/17/19 23:16 Dose: 100 mls/hr Vancomycin HCl 1.5 gm/ Sodium (Chloride) 250 mls @ 150 mls/hr IV ONETIME ONE Stop: 01/18/19 00:35 Last Admin: 01/17/19 23:53 Dose: 150 mls/hr Sterile Water (Sterile Water For Injection) Confirm Administered Dose 20 mls @ as directed .ROUTE .STK-MED ONE Stop: 01/17/19 23:16 Last Admin: 01/17/19 23:22 Dose: Not Given Sterile Water (Sterile Water For Injection) Confirm Administered Dose 20 mls @ as directed .ROUTE .STK-MED ONE Stop: 01/17/19 23:19 Last Admin: 01/17/19 23:23 Dose: Not Given Morphine Sulfate (Morphine) 4 mg IVPUSH ONETIME ONE Stop: 01/17/19 21:44 Last Admin: 01/17/19 21:48 Dose: 4 mg Morphine Sulfate (Morphine) 4 mg IVPUSH ONETIME ONE Stop: 01/17/19 23:04 Last Admin: 01/17/19 23:08 Dose: 4 mg Morphine Sulfate (Morphine) 2 mg IVPUSH Q1H PRN PRN Reason: Pain - Exam Quality Assessment: No: Supplemental Oxygen General: Alert, Oriented, Cooperative, No Acute Distress, Sedated Lungs: Normal Respiratory Effort Cardiovascular: Regular Rhythm, Tachycardia GI/Abdominal Exam: No Distention Extremities: No Pedal Edema, Increased Warmth (right AC fossa), Other ( induration proximal to AC fossa ) Skin: Warm, Dry Psy/Mental Status: Alert, Normal Affect - Problem List Review Problem List Initiated/Reviewed/Updated: Yes - My Orders Last 24 Hours: My Active Orders 01/18/19 10:02 Potassium Chloride [Klor-Con M20] 40 meq PO ONETIME ONE 01/18/19 11:00 Vancomycin 1.5 gm Sodium Chloride 0.9% [Normal Saline] 250 ml IV Q12H 01/19/19 05:00 BASIC METABOLIC PANEL,BMP [CHEM] Timed CBC W/O DIFF,HEMOGRAM [HEME] Timed (1) - Plan Plan:: ASSESSMENT AND PLAN - Cellulitis of the right antecubital fossa-secondary to IV drug use with infection around the injection site. No evidence for abscess but there is a fair amount of induration. Limited range of motion does raise concern for deeper infection. He does have some associated superficial thrombophlebitis. -Antibiotic coverage with vancomycin -Pain control -Follow-up cultures -Consider repeat imaging to look for abscess if not improving Methamphetamine abuse-recent relapse with IV drug use. -Encourage cessation and offer resources for treatment as available Maintenance issues - - DVT prophylaxis -mechanical - GI prophylaxis -not indicated - Nutrition -regular - Leiva catheter -not indicated Disposition -I would anticipate discharge home after the hospital stay Yared Ferrari M.D.
[2019-01-18] MEDS ORDERED: Potassium Chloride 20 MEQ Tab.ER PO ONE (10:30)
[2019-01-19] MEDS: Morphine 4 MG/ML Syringe IVPUSH PRN ×2 (00:17→02:56)
[2019-01-19] MEDS: Ibuprofen 600 MG Tab PO PRN ×3 (02:55→19:40)
[2019-01-19] MEDS: Acetaminophen 325 MG Tab PO PRN ×2 (05:45→18:06)
[2019-01-19] MEDS: Sodium Chloride 0.9% 1,000 ML IV SCH ×2 (07:22→15:39)
--- NOTE | 2019-01-19 10:27 | PCM.PN ---
- General Info Date of Service: 01/19/19 Subjective Update: No acute events overnight but the patient did have a fever last night that persisted through a fair amount of the evening and overnight hours. Pain in the right antecubital fossa is stable compared to yesterday but swelling appears worse. White blood cell count is now normal. Cultures remain negative. Ultrasound of the right antecubital fossa did show evidence for multiloculated abscess. Functional Status: Reports: Pain Controlled, Tolerating Diet - Review of Systems General: Reports: Fever Musculoskeletal: Reports: Arm Pain (right elbow area ) - Patient Data Vitals - Most Recent: Last Vital Signs Temp 37.3 C 01/19/19 06:56 Pulse 89 01/19/19 06:56 Resp 16 01/19/19 06:56 BP 117/63 01/19/19 06:56 Pulse Ox 91 L 01/19/19 06:56 Weight - Most Recent: 94.801 kg I&O - Last 24 Hours: Intake & Output 01/18/19 01/19/19 01/19/19 22:59 06:59 14:59 Intake Total 2283 2954 1000 Output Total 1100 2000 1300 Balance 1183 954 -300 Lab Results Last 24 Hours: Laboratory Results - last 24 hr 01/19/19 01/19/19 Range/Units 04:00 04:00 WBC 8.8 (4.5-11.0) K/uL RBC 4.15 (3.30-5.50) M/uL Hgb 11.0 L (12.0-15.0) g/dL Hct 36.0 (36.0-48.0) % MCV 87 (80-98) fL MCH 27 (27-31) pg MCHC 31 L (32-36) % Plt Count 306 (150-400) K/uL Sodium 137 L (140-148) mmol/L Potassium 3.8 (3.6-5.2) mmol/L Chloride 104 (100-108) mmol/L Carbon Dioxide 25 (21-32) mmol/L Anion Gap 11.8 (5.0-14.0) mmol/L BUN 5 L (7-18) mg/dL Creatinine 0.6 (0.6-1.0) mg/dL Est Cr Clr Drug Dosing 108.26 mL/min Estimated GFR (MDRD) > 60 (>60) Glucose 107 H (74-106) mg/dL Calcium 7.9 L (8.5-10.1) mg/dL Shravan Results Last 24 Hours: Microbiology 01/17/19 21:30 Aerobic Blood Culture - Preliminary Blood - Venous - Iv Start NO GROWTH AFTER 1 DAY Anaerobic Blood Culture - Preliminary NO GROWTH AFTER 1 DAY 01/17/19 21:30 Aerobic Blood Culture - Preliminary Blood - Venous - Iv Start NO GROWTH AFTER 1 DAY Anaerobic Blood Culture - Preliminary NO GROWTH AFTER 1 DAY Med Orders - Current: Current Medications Acetaminophen (Tylenol) 650 mg PO Q4H PRN PRN Reason: Fever Last Admin: 01/19/19 05:45 Dose: 650 mg Sodium Chloride (Normal Saline) 1,000 mls @ 999 mls/hr IV ASDIRECTED [facility] Last Admin: 01/17/19 21:41 Dose: 999 mls/hr Sodium Chloride (Normal Saline) 1,000 mls @ 125 mls/hr IV ASDIRECTED [facility] Last Admin: 01/19/19 07:22 Dose: 125 mls/hr Vancomycin HCl 1.5 gm/ Sodium (Chloride) 250 mls @ 150 mls/hr IV Q12H [facility] Last Admin: 01/18/19 22:23 Dose: 150 mls/hr Ibuprofen (Motrin) 600 mg PO Q6H PRN PRN Reason: Pain Last Admin: 01/19/19 02:55 Dose: 600 mg Morphine Sulfate (Morphine) 4 mg IVPUSH Q1H PRN PRN Reason: Pain Last Admin: 01/19/19 02:56 Dose: 4 mg Ondansetron HCl (Zofran) 4 mg IV Q4H PRN PRN Reason: Nausea/Vomiting Discontinued Medications Enoxaparin Sodium (Lovenox) 93.4 mg SUBCUT ONETIME ONE Stop: 01/17/19 23:01 Last Admin: 01/17/19 23:15 Dose: 93.4 mg Sodium Chloride (Normal Saline) 1,000 mls @ 999 mls/hr IV .[facility] Ceftriaxone Sodium 2 gm/ (Sodium Chloride) 50 mls @ 100 mls/hr IV ONETIME ONE Stop: 01/17/19 23:28 Last Admin: 01/17/19 23:16 Dose: 100 mls/hr Vancomycin HCl 1.5 gm/ Sodium (Chloride) 250 mls @ 150 mls/hr IV ONETIME ONE Stop: 01/18/19 00:35 Last Admin: 01/17/19 23:53 Dose: 150 mls/hr Sterile Water (Sterile Water For Injection) Confirm Administered Dose 20 mls @ as directed .ROUTE .STK-MED ONE Stop: 01/17/19 23:16 Last Admin: 01/17/19 23:22 Dose: Not Given Sterile Water (Sterile Water For Injection) Confirm Administered Dose 20 mls @ as directed .ROUTE .STK-MED ONE Stop: 01/17/19 23:19 Last Admin: 01/17/19 23:23 Dose: Not Given Morphine Sulfate (Morphine) 4 mg IVPUSH ONETIME ONE Stop: 01/17/19 21:44 Last Admin: 01/17/19 21:48 Dose: 4 mg Morphine Sulfate (Morphine) 4 mg IVPUSH ONETIME ONE Stop: 01/17/19 23:04 Last Admin: 01/17/19 23:08 Dose: 4 mg Morphine Sulfate (Morphine) 2 mg IVPUSH Q1H PRN PRN Reason: Pain Potassium Chloride (Klor-Con M20) 40 meq PO ONETIME ONE Stop: 01/18/19 10:31 Last Admin: 01/18/19 11:44 Dose: 40 meq - Exam Quality Assessment: No: Supplemental Oxygen General: Alert, Oriented, Cooperative, No Acute Distress Lungs: Normal Respiratory Effort Cardiovascular: Regular Rate, Regular Rhythm GI/Abdominal Exam: Soft, No Distention Extremities: Joint Swelling (right elbow ), Increased Warmth (right AC fossa) Psy/Mental Status: Alert, Normal Affect - Problem List Review Problem List Initiated/Reviewed/Updated: Yes - My Orders Last 24 Hours: My Active Orders 01/18/19 11:00 Vancomycin 1.5 gm Sodium Chloride 0.9% [Normal Saline] 250 ml IV Q12H 01/18/19 11:21 Antiembolic Devices [RC] .Routine SCD [Sequential Compression Device] [OM.PC] Routine 01/19/19 10:25 Extremity Non Vascular Rt [US] Urgent 01/20/19 05:00 BASIC METABOLIC PANEL,BMP [CHEM] Timed CBC W/O DIFF,HEMOGRAM [HEME] Timed (1) 01/20/19 10:30 VANCOMYCIN TROUGH [CHEM] Routine - Plan Plan:: ASSESSMENT AND PLAN - Cellulitis of the right antecubital fossa with abscess-secondary to IV drug use with infection around the injection site. She does have some associated superficial thrombophlebitis. Ultrasound today suggested multiloculated abscess. Surgical intervention planned tomorrow. -Antibiotic coverage with vancomycin and Pip/Tazo -Pain control -Follow-up cultures -Consultation with Dr. Marcano for debridement of abscess, surgery planned in the morning Methamphetamine abuse-recent relapse with IV drug use. -Encourage cessation and offer resources for treatment as available Maintenance issues - - DVT prophylaxis -mechanical - GI prophylaxis -not indicated - Nutrition -regular, nothing by mouth after midnight - Leiva catheter -not indicated Disposition -I would anticipate discharge home after the hospital stay Yared Ferrari M.D.
--- NOTE | 2019-01-19 11:51 | CRLUS ---
INDICATION: Antecubital fossa cellulitis and induration. Evaluate for abscess. TECHNIQUE: Ultrasound of the right arm was specific attention to the antecubital fossa in the region of clinical concern COMPARISON: Ultrasound 01/17/2019. FINDINGS: Complex lobulated 4.1 x 2.6 x 3.7 cm fluid collection in the right antecubital fossa in the region of redness is larger and contains areas of soft tissue echogenicity and would be consistent with an abscess in the appropriate clinical context. This fluid collection surrounds the right cephalic vein. The right cephalic vein continues to having a moderate amount of acute clot/thrombus within it. Mild subcutaneous edema with right arm. Remainder negative. IMPRESSION: 1. Complex fluid collection containing debris and soft tissue echogenicity in the soft tissues of the right antecubital fossa in the region of redness has enlarged since 01/17/2019 and surrounds portions of the right cephalic vein. An underlying abscess cannot be excluded. 2. Moderate acute thrombus within the right cephalic vein again noted. 3. Mild subcutaneous edema right arm. Dictated by Ritesh Mata MD @ Jan 19 2019 11:47AM Signed by Dr. Ritesh Mata @ Jan 19 2019 11:49AM
[2019-01-19] MEDS: oxyCODONE 5 MG Tab PO PRN ×3 (13:29→23:23)
[2019-01-19] MEDS: Piperacillin/Tazobactam/Dext 3.375 GM in Premix Bag 1 BAG IV SCH ×2 (13:58→19:30)
[2019-01-20] MEDS: Piperacillin/Tazobactam/Dext 3.375 GM in Premix Bag 1 BAG IV SCH ×4 (01:05→20:53)
[2019-01-20] MEDS: Sodium Chloride 0.9% 1,000 ML IV SCH (02:30)
[2019-01-20] MEDS: oxyCODONE 5 MG Tab PO PRN ×4 (05:07→20:53)
[2019-01-20] MEDS: Ibuprofen 600 MG Tab PO PRN ×2 (05:11→19:28)
[2019-01-20] MEDS: Morphine 4 MG/ML Syringe IVPUSH PRN ×2 (07:48→23:23)
--- NOTE | 2019-01-20 08:12 | HP ---
HISTORY OF PRESENT ILLNESS: Halle is seen in consultation for cellulitis and possible abscess in the right antecubital area. She is a 33-year-old female. History of meth abuse in the past. Has been clean since September 2017. Then, a few days ago, started using IV meth. On 01/16/2019, she started having swelling, redness, warmth in the right antecubital area. She went to the ER to have this evaluated. PAST MEDICAL HISTORY: 1. Impaired vision. 2. 4. 3. Addiction to methamphetamines and alcohol. 4. Anxiety, history of bipolar, depression, panic attacks. 5. Hospitalized recently for suicide attempt and suicidal ideation at [facility]. 6. Obesity. BMI 37. PAST SURGICAL HISTORY: None. SOCIAL HISTORY: Smokes half a pack a day for 14 years, caffeinated beverages, recreational drugs as above. REVIEW OF SYSTEMS: CONSTITUTIONAL: Denies any fever, chills, night sweats, or fatigue. HEENT: Negative. NECK: Negative. CHEST: No chest pain, shortness of breath, fast or irregular heartbeat. LUNGS: No cough. ABDOMEN: No nausea, vomiting, diarrhea, constipation. No red or black stools. GENITOURINARY: Negative. EXTREMITIES: Negative with exception of chief complaint. NEUROLOGIC: No headache, loss of coordination. PSYCHIATRIC: Reports depression. SKIN: As above with abscess cellulitis in right antecubital area. No other rash. Remainder of review of systems negative for any pertinent positives and negatives. OBJECTIVE: GENERAL: Halle Dumont is a 33-year-old female. VITAL SIGNS: Height is 5 feet 3 inches, weight is 209 pounds, BMI is 37. TPR 99.7, 89, 18, blood pressure 122/66. HEENT: Negative. NECK: Supple. HEART: Regular rate and rhythm. LUNGS: Clear. ABDOMEN: Soft, nontender. EXTREMITIES: Negative for peripheral edema. Cellulitis noted in right antecubital area. Unable to fully extend the arm due to increased pain and swelling. NEUROLOGIC: Intact. PSYCHIATRIC: Mood and affect flat. ASSESSMENT: Cellulitis, right antecubital area secondary to IV methamphetamine use. PLAN: 1. Schedule, have consent signed for incision and drainage with debridement of right antecubital abscess. Case to follow on 01/20/2019. General anesthesia. Surgeon, Dr. Ney Marcano. 2. Remain n.p.o. 3. Change IV to D5LR at 125 mL/h. Orders to be written postoperatively. 4. To start incentive spirometer and use 10 times every hour while awake. 5. Because of the patient's history of smoking, we will order DuoNeb for preop. Isabel Villar PA-C /[id number]
[2019-01-20] MEDS: Dextrose 5%-Lactated Ringers 1,000 ML IV SCH ×2 (09:16→23:27)
[2019-01-20] MEDS: Acetaminophen 325 MG Tab PO PRN ×2 (09:24→16:23)
[2019-01-20] MEDS ORDERED: fentaNYL 100 MCG/2 ML SDV ONE (09:29)
[2019-01-20] MEDS ORDERED: Propofol 200 MG/20 ML SDV ONE (09:29)
[2019-01-20] MEDS ORDERED: Midazolam 1 MG/ML 2 ML SDV ONE (09:29)
[2019-01-20] MEDS ORDERED: Meropenem 500 MG SDV ONE (10:27)
[2019-01-20] MEDS ORDERED: Rocuronium 50 MG/5 ML Vial ONE (11:12)
[2019-01-20] MEDS ORDERED: Neostigmine Methylsulfate 1 MG/ML 5 ML Syringe ONE (11:13)
[2019-01-20] MEDS ORDERED: Glycopyrrolate 0.2 MG/ML 5 ML MDV ONE (11:13)
[2019-01-20] MEDS ORDERED: Ondansetron 4 MG/2 ML SDV ONE (11:13)
[2019-01-20] MEDS ORDERED: Dexamethasone 4 MG/ML SDV ONE (11:13)
[2019-01-20] MEDS ORDERED: fentaNYL 250 MCG/5 ML SDV ONE (11:20)
[2019-01-20] MEDS ORDERED: Albuterol/Ipratropium 3.0-0.5 MG/3 ML Neb Soln NEB ONE (12:00)
--- NOTE | 2019-01-20 14:12 | PCM.PN ---
- General Info Date of Service: 01/20/19 Subjective Update: Ms. Dumont went down to surgery earlier today for debridement of ongoing and infection right elbow. Region did start to drain earlier today, at the time of surgery did have deep tissue infection with necrotic tissue. White blood cell count is normal and she has remained afebrile over the last 24 hours. Functional Status: Reports: Tolerating Diet, Ambulating, Urinating - Review of Systems General: Denies: Fever, Weakness, Chills Pulmonary: Reports: No Symptoms Cardiovascular: Reports: No Symptoms Gastrointestinal: Reports: No Symptoms Musculoskeletal: Reports: Arm Pain (Swelling and pain right arm) - Patient Data Vitals - Most Recent: Last Vital Signs Temp 96.5 F 01/20/19 13:00 Pulse 75 01/20/19 13:15 Resp 15 01/20/19 13:15 BP 116/54 L 01/20/19 13:15 Pulse Ox 97 01/20/19 13:15 Weight - Most Recent: 209 lb I&O - Last 24 Hours: Intake & Output 01/19/19 01/20/19 01/20/19 22:59 06:59 14:59 Intake Total 1331 840 Output Total 500 775 Balance 1331 340 -775 Lab Results Last 24 Hours: Laboratory Results - last 24 hr 01/20/19 01/20/19 01/20/19 Range/Units 04:00 04:00 09:47 WBC 8.5 (4.5-11.0) K/uL RBC 3.98 (3.30-5.50) M/uL Hgb 10.6 L (12.0-15.0) g/dL Hct 34.9 L (36.0-48.0) % MCV 88 (80-98) fL MCH 27 (27-31) pg MCHC 30 L (32-36) % Plt Count 313 (150-400) K/uL Sodium 139 L (140-148) mmol/L Potassium 3.9 (3.6-5.2) mmol/L Chloride 104 (100-108) mmol/L Carbon Dioxide 25 (21-32) mmol/L Anion Gap 13.9 (5.0-14.0) mmol/L BUN 7 (7-18) mg/dL Creatinine 0.7 (0.6-1.0) mg/dL Est Cr Clr Drug Dosing 92.79 mL/min Estimated GFR (MDRD) > 60 (>60) Glucose 102 (74-106) mg/dL Calcium 7.6 L (8.5-10.1) mg/dL Urine HCG, Qual Negative Vancomycin Trough (10.0-20.0) ug/mL 01/20/19 Range/Units 10:23 WBC (4.5-11.0) K/uL RBC (3.30-5.50) M/uL Hgb (12.0-15.0) g/dL Hct (36.0-48.0) % MCV (80-98) fL MCH (27-31) pg MCHC (32-36) % Plt Count (150-400) K/uL Sodium (140-148) mmol/L Potassium (3.6-5.2) mmol/L Chloride (100-108) mmol/L Carbon Dioxide (21-32) mmol/L Anion Gap (5.0-14.0) mmol/L BUN (7-18) mg/dL Creatinine (0.6-1.0) mg/dL Est Cr Clr Drug Dosing mL/min Estimated GFR (MDRD) (>60) Glucose (74-106) mg/dL Calcium (8.5-10.1) mg/dL Urine HCG, Qual Vancomycin Trough 7.1 L (10.0-20.0) ug/mL Shravan Results Last 24 Hours: Microbiology 01/20/19 12:04 Gram Stain - Final Arm, Right - Upper 01/17/19 21:30 Aerobic Blood Culture - Preliminary Blood - Venous - Iv Start NO GROWTH AFTER 2 DAYS Anaerobic Blood Culture - Preliminary NO GROWTH AFTER 2 DAYS 01/17/19 21:30 Aerobic Blood Culture - Preliminary Blood - Venous - Iv Start NO GROWTH AFTER 2 DAYS Anaerobic Blood Culture - Preliminary NO GROWTH AFTER 2 DAYS Med Orders - Current: Current Medications Acetaminophen (Tylenol) 650 mg PO Q4H PRN PRN Reason: Fever Last Admin: 01/20/19 09:24 Dose: 650 mg Piperacillin/Tazobactam/ (Dextrose 3.375 gm/ Premix) 50 mls @ 100 mls/hr IV Q6H [facility] Last Admin: 01/20/19 07:49 Dose: 100 mls/hr Dextrose/Lactated Ringer's (Dextrose 5%-Lactated Ringers) 1,000 mls @ 125 mls/ hr IV ASDIRECTED [facility] Last Admin: 01/20/19 09:16 Dose: 125 mls/hr Vancomycin HCl 1.5 gm/ Sodium (Chloride) 250 mls @ 150 mls/hr IV Q8H [facility] Last Admin: 01/20/19 12:35 Dose: 150 mls/hr Ibuprofen (Motrin) 600 mg PO Q6H PRN PRN Reason: Pain Last Admin: 01/20/19 05:11 Dose: 600 mg Morphine Sulfate (Morphine) 4 mg IVPUSH Q1H PRN PRN Reason: Pain Last Admin: 01/20/19 07:48 Dose: 4 mg Ondansetron HCl (Zofran) 4 mg IV Q4H PRN PRN Reason: Nausea/Vomiting Oxycodone HCl (Oxycodone) 5 - 10 mg PO Q4H PRN PRN Reason: Pain Last Admin: 01/20/19 09:25 Dose: 10 mg Discontinued Medications Albuterol/Ipratropium (Duoneb 3.0-0.5 Mg/3 Ml) 3 ml NEB ONETIME ONE Stop: 01/20/19 12:01 Last Admin: 01/20/19 12:51 Dose: 3 ml Dexamethasone (Dexamethasone) Confirm Administered Dose 4 mg .ROUTE .STK-MED ONE Stop: 01/20/19 11:14 Enoxaparin Sodium (Lovenox) 93.4 mg SUBCUT ONETIME ONE Stop: 01/17/19 23:01 Last Admin: 01/17/19 23:15 Dose: 93.4 mg Fentanyl (Sublimaze) Confirm Administered Dose 100 mcg .ROUTE .STK-MED ONE Stop: 01/20/19 09:30 Fentanyl (Sublimaze) Confirm Administered Dose 250 mcg .ROUTE .STK-MED ONE Stop: 01/20/19 11:21 Glycopyrrolate (Robinul) Confirm Administered Dose 1 mg .ROUTE .STK-MED ONE Stop: 01/20/19 11:14 Sodium Chloride (Normal Saline) 1,000 mls @ 999 mls/hr IV .BOLUS MERE Sodium Chloride (Normal Saline) 1,000 mls @ 999 mls/hr IV ASDIRECTED [facility] Last Admin: 01/17/19 21:41 Dose: 999 mls/hr Ceftriaxone Sodium 2 gm/ (Sodium Chloride) 50 mls @ 100 mls/hr IV ONETIME ONE Stop: 01/17/19 23:28 Last Admin: 01/17/19 23:16 Dose: 100 mls/hr Vancomycin HCl 1.5 gm/ Sodium (Chloride) 250 mls @ 150 mls/hr IV ONETIME ONE Stop: 01/18/19 00:35 Last Admin: 01/17/19 23:53 Dose: 150 mls/hr Sterile Water (Sterile Water For Injection) Confirm Administered Dose 20 mls @ as directed .ROUTE .STK-MED ONE Stop: 01/17/19 23:16 Last Admin: 01/17/19 23:22 Dose: Not Given Sterile Water (Sterile Water For Injection) Confirm Administered Dose 20 mls @ as directed .ROUTE .STK-MED ONE Stop: 01/17/19 23:19 Last Admin: 01/17/19 23:23 Dose: Not Given Sodium Chloride (Normal Saline) 1,000 mls @ 125 mls/hr IV ASDIRECTED [facility] Last Admin: 01/20/19 02:30 Dose: 125 mls/hr Vancomycin HCl 1.5 gm/ Sodium (Chloride) 250 mls @ 150 mls/hr IV Q12H [facility] Last Admin: 01/19/19 23:14 Dose: 150 mls/hr Linezolid (Zyvox) Confirm Administered Dose 300 mls @ as directed .ROUTE .STK- MED ONE Stop: 01/20/19 10:28 Linezolid (Zyvox) 600 mg IRR .STK-MED ONE Stop: 01/20/19 11:11 Last Admin: 01/20/19 11:10 Dose: 600 mg Meropenem (Merrem) Confirm Administered Dose 500 mg .ROUTE .STK-MED ONE Stop: 01/20/19 10:28 Midazolam HCl (Versed 1 Mg/Ml) Confirm Administered Dose 2 mg .ROUTE .STK-MED ONE Stop: 01/20/19 09:30 Morphine Sulfate (Morphine) 4 mg IVPUSH ONETIME ONE Stop: 01/17/19 21:44 Last Admin: 01/17/19 21:48 Dose: 4 mg Morphine Sulfate (Morphine) 4 mg IVPUSH ONETIME ONE Stop: 01/17/19 23:04 Last Admin: 01/17/19 23:08 Dose: 4 mg Morphine Sulfate (Morphine) 2 mg IVPUSH Q1H PRN PRN Reason: Pain Neostigmine Methylsulfate (Neostigmine) Confirm Administered Dose 5 mg .ROUTE .STK-MED ONE Stop: 01/20/19 11:14 Ondansetron HCl (Zofran) Confirm Administered Dose 4 mg .ROUTE .STK-MED ONE Stop: 01/20/19 11:14 Potassium Chloride (Klor-Con M20) 40 meq PO ONETIME ONE Stop: 01/18/19 10:31 Last Admin: 01/18/19 11:44 Dose: 40 meq Propofol (Diprivan 20 Ml) Confirm Administered Dose 200 mg .ROUTE .STK-MED ONE Stop: 01/20/19 09:30 Rocuronium [place] (Zemuron) Confirm Administered Dose 50 mg .ROUTE .STK-MED ONE Stop: 01/20/19 11:13 - Exam Quality Assessment: DVT Prophylaxis General: Alert, Oriented, Cooperative, Mild Distress Lungs: Clear to Auscultation, Normal Respiratory Effort Cardiovascular: Regular Rate, Regular Rhythm, No Murmurs GI/Abdominal Exam: Soft, Non-Tender, No Organomegaly, No Distention Extremities: No Pedal Edema, Arm Pain (Surgical dressing in place right arm) - Problem List Review Problem List Initiated/Reviewed/Updated: Yes - Plan Plan:: ASSESSMENT AND PLAN - Cellulitis of the right antecubital fossa with abscess-secondary to IV drug use with infection around the injection site. She does have some associated superficial thrombophlebitis. Postsurgical debridement earlier today -Antibiotic coverage with vancomycin and Pip/Tazo, and culture results -Pain control -Follow-up cultures -Urgent call follow-up per Dr. Marcano Methamphetamine abuse-recent relapse with IV drug use. -Encourage cessation and offer resources for treatment as available Maintenance issues - - DVT prophylaxis -mechanical - GI prophylaxis -not indicated - Nutrition -regular, nothing by mouth after midnight - Leiva catheter -not indicated Disposition -I would anticipate discharge home after the hospital stay
[2019-01-20] MEDS: Lactobacillus Rhamnosus GG (Probiotic) Cap PO SCH ×2 (16:18→21:02)
[2019-01-21] MEDS: Piperacillin/Tazobactam/Dext 3.375 GM in Premix Bag 1 BAG IV SCH ×4 (01:58→20:51)
[2019-01-21] MEDS ORDERED: Lidocaine 1% with EPINEPHrine 1:100,000 50 ML MDV ONE (06:33)
[2019-01-21] MEDS ORDERED: Bupivacaine 0.5% 50 ML MDV ONE (06:33)
[2019-01-21] MEDS ORDERED: Meropenem 500 MG SDV ONE (06:34)
[2019-01-21] MEDS ORDERED: Midazolam 1 MG/ML 2 ML SDV ONE (07:09)
[2019-01-21] MEDS ORDERED: Propofol 200 MG/20 ML SDV ONE (07:09)
[2019-01-21] MEDS ORDERED: fentaNYL 100 MCG/2 ML SDV ONE (07:09)
[2019-01-21] MEDS: Lactobacillus Rhamnosus GG (Probiotic) Cap PO SCH ×2 (08:06→20:56)
[2019-01-21] MEDS: oxyCODONE 5 MG Tab PO PRN ×4 (09:46→22:08)
--- NOTE | 2019-01-21 11:30 | PN ---
DATE OF SERVICE: 01/21/2019 SUBJECTIVE: Halle is postop day 1. She will be going down to the OR for dressing change under IV sedation. Reports pain is controlled. Vital signs have been stable. Oral intake 1670, urine output 3000. REVIEW OF SYSTEMS: Remainder of review of systems negative for any pertinent positives and negatives. OBJECTIVE: GENERAL: Halle Dumont is a 33-year-old female. She is resting in bed. VITAL SIGNS: TPR 97.4, 73, 16. Blood pressure 118/69. HEENT: Negative. NECK: Supple. HEART: Regular rate and rhythm. LUNGS: Clear. EXTREMITIES: Right antecubital dressing is dry and intact. 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 PLAN: Remain n.p.o. Orders to be written post dressing change. We will evaluate p.r.n. or in a.. Isabel Villar PA-C /[id number]
[2019-01-21] MEDS: Ibuprofen 600 MG Tab PO PRN ×2 (13:08→20:58)
--- NOTE | 2019-01-21 13:22 | PCM.PN ---
- General Info Date of Service: 01/21/19 Subjective Update: Ms. Dumont has been stable since yesterday with no significant temperature elevation or hemodynamic instability. She was taken back to the operating room today for dressing change, no further debridement was required. Functional Status: Reports: Tolerating Diet, Ambulating, Urinating - Review of Systems General: Denies: Fever, Chills Pulmonary: Reports: No Symptoms Cardiovascular: Reports: No Symptoms Gastrointestinal: Reports: No Symptoms Musculoskeletal: Reports: Arm Pain - Patient Data Vitals - Most Recent: Last Vital Signs Temp 98.1 F 01/21/19 10:31 Pulse 71 01/21/19 10:31 Resp 16 01/21/19 10:31 BP 119/55 L 01/21/19 10:31 Pulse Ox 93 L 01/21/19 10:31 Weight - Most Recent: 209 lb I&O - Last 24 Hours: Intake & Output 01/20/19 01/21/19 01/21/19 22:59 06:59 14:59 Intake Total 2851 1529 400 Output Total 2787 273 3350 Balance 1326 829 -800 Shravan Results Last 24 Hours: Microbiology 01/17/19 21:30 Aerobic Blood Culture - Preliminary Blood - Venous - Iv Start NO GROWTH AFTER 3 DAYS Anaerobic Blood Culture - Preliminary NO GROWTH AFTER 3 DAYS 01/17/19 21:30 Aerobic Blood Culture - Preliminary Blood - Venous - Iv Start NO GROWTH AFTER 3 DAYS Anaerobic Blood Culture - Preliminary NO GROWTH AFTER 3 DAYS 01/20/19 12:04 Gram Stain - Final Arm, Right - Upper Med Orders - Current: Current Medications Acetaminophen (Tylenol) 650 mg PO Q4H PRN PRN Reason: Fever Last Admin: 01/20/19 16:23 Dose: 650 mg Piperacillin/Tazobactam/ (Dextrose 3.375 gm/ Premix) 50 mls @ 100 mls/hr IV Q6H [facility] Last Admin: 01/21/19 13:09 Dose: 100 mls/hr Vancomycin HCl 1.5 gm/ Sodium (Chloride) 250 mls @ 150 mls/hr IV Q8H [facility] Last Admin: 01/21/19 10:29 Dose: 150 mls/hr Ibuprofen (Motrin) 600 mg PO Q6H PRN PRN Reason: Pain Last Admin: 01/21/19 13:08 Dose: 600 mg Lactobacillus Rhamnosus (Culturelle) 1 cap PO BID [facility] Last Admin: 01/21/19 08:06 Dose: 1 cap Morphine Sulfate (Morphine) 4 mg IVPUSH Q1H PRN PRN Reason: Pain Last Admin: 01/20/19 23:23 Dose: 4 mg Ondansetron HCl (Zofran) 4 mg IV Q4H PRN PRN Reason: Nausea/Vomiting Oxycodone HCl (Oxycodone) 5 - 10 mg PO Q4H PRN PRN Reason: Pain Last Admin: 01/21/19 13:08 Dose: 10 mg Discontinued Medications Albuterol/Ipratropium (Duoneb 3.0-0.5 Mg/3 Ml) 3 ml NEB ONETIME ONE Stop: 01/20/19 12:01 Last Admin: 01/20/19 12:51 Dose: 3 ml Bupivacaine HCl (Marcaine 0.5%) Confirm Administered Dose 50 ml .ROUTE .STK-MED ONE Stop: 01/21/19 06:34 Dexamethasone (Dexamethasone) Confirm Administered Dose 4 mg .ROUTE .STK-MED ONE Stop: 01/20/19 11:14 Enoxaparin Sodium (Lovenox) 93.4 mg SUBCUT ONETIME ONE Stop: 01/17/19 23:01 Last Admin: 01/17/19 23:15 Dose: 93.4 mg Fentanyl (Sublimaze) Confirm Administered Dose 100 mcg .ROUTE .STK-MED ONE Stop: 01/20/19 09:30 Fentanyl (Sublimaze) Confirm Administered Dose 250 mcg .ROUTE .STK-MED ONE Stop: 01/20/19 11:21 Fentanyl (Sublimaze) Confirm Administered Dose 100 mcg .ROUTE .STK-MED ONE Stop: 01/21/19 07:10 Glycopyrrolate (Robinul) Confirm Administered Dose 1 mg .ROUTE .STK-MED ONE Stop: 01/20/19 11:14 Sodium Chloride (Normal Saline) 1,000 mls @ 999 mls/hr IV .BOLUS MERE Sodium Chloride (Normal Saline) 1,000 mls @ 999 mls/hr IV ASDIRECTED [facility] Last Admin: 01/17/19 21:41 Dose: 999 mls/hr Ceftriaxone Sodium 2 gm/ (Sodium Chloride) 50 mls @ 100 mls/hr IV ONETIME ONE Stop: 01/17/19 23:28 Last Admin: 01/17/19 23:16 Dose: 100 mls/hr Vancomycin HCl 1.5 gm/ Sodium (Chloride) 250 mls @ 150 mls/hr IV ONETIME ONE Stop: 01/18/19 00:35 Last Admin: 01/17/19 23:53 Dose: 150 mls/hr Sterile Water (Sterile Water For Injection) Confirm Administered Dose 20 mls @ as directed .ROUTE .STK-MED ONE Stop: 01/17/19 23:16 Last Admin: 01/17/19 23:22 Dose: Not Given Sterile Water (Sterile Water For Injection) Confirm Administered Dose 20 mls @ as directed .ROUTE .STK-MED ONE Stop: 01/17/19 23:19 Last Admin: 01/17/19 23:23 Dose: Not Given Sodium Chloride (Normal Saline) 1,000 mls @ 125 mls/hr IV ASDIRECTED [facility] Last Admin: 01/20/19 02:30 Dose: 125 mls/hr Vancomycin HCl 1.5 gm/ Sodium (Chloride) 250 mls @ 150 mls/hr IV Q12H [facility] Last Admin: 01/19/19 23:14 Dose: 150 mls/hr Dextrose/Lactated Ringer's (Dextrose 5%-Lactated Ringers) 1,000 mls @ 125 mls/ hr IV ASDIRECTED [facility] Last Admin: 01/20/19 23:27 Dose: 125 mls/hr Linezolid (Zyvox) Confirm Administered Dose 300 mls @ as directed .ROUTE .STK- MED ONE Stop: 01/20/19 10:28 Lidocaine/Epinephrine (Xylocaine 1% With Epinephrine 1:100,000) Confirm Administered Dose 50 ml .ROUTE .STK-MED ONE Stop: 01/21/19 06:34 Linezolid (Zyvox) 600 mg IRR .STK-MED ONE Stop: 01/20/19 11:11 Last Admin: 01/20/19 11:10 Dose: 600 mg Meropenem (Merrem) Confirm Administered Dose 500 mg .ROUTE .STK-MED ONE Stop: 01/20/19 10:28 Meropenem (Merrem) Confirm Administered Dose 500 mg .ROUTE .STK-MED ONE Stop: 01/21/19 06:35 Midazolam HCl (Versed 1 Mg/Ml) Confirm Administered Dose 2 mg .ROUTE .STK-MED ONE Stop: 01/20/19 09:30 Midazolam HCl (Versed 1 Mg/Ml) Confirm Administered Dose 2 mg .ROUTE .STK-MED ONE Stop: 01/21/19 07:10 Morphine Sulfate (Morphine) 4 mg IVPUSH ONETIME ONE Stop: 01/17/19 21:44 Last Admin: 01/17/19 21:48 Dose: 4 mg Morphine Sulfate (Morphine) 4 mg IVPUSH ONETIME ONE Stop: 01/17/19 23:04 Last Admin: 01/17/19 23:08 Dose: 4 mg Morphine Sulfate (Morphine) 2 mg IVPUSH Q1H PRN PRN Reason: Pain Neostigmine Methylsulfate (Neostigmine) Confirm Administered Dose 5 mg .ROUTE .STK-MED ONE Stop: 01/20/19 11:14 Ondansetron HCl (Zofran) Confirm Administered Dose 4 mg .ROUTE .STK-MED ONE Stop: 01/20/19 11:14 Potassium Chloride (Klor-Con M20) 40 meq PO ONETIME ONE Stop: 01/18/19 10:31 Last Admin: 01/18/19 11:44 Dose: 40 meq Propofol (Diprivan 20 Ml) Confirm Administered Dose 200 mg .ROUTE .STK-MED ONE Stop: 01/20/19 09:30 Propofol (Diprivan 20 Ml) Confirm Administered Dose 200 mg .ROUTE .STK-MED ONE Stop: 01/21/19 07:10 Rocuronium [place] (Zemuron) Confirm Administered Dose 50 mg .ROUTE .STK-MED ONE Stop: 01/20/19 11:13 - Exam General: Alert, Oriented, Cooperative, Mild Distress Lungs: Clear to Auscultation, Normal Respiratory Effort Cardiovascular: Regular Rate, Regular Rhythm, No Murmurs GI/Abdominal Exam: Soft, Non-Tender, No Organomegaly, No Distention Extremities: Arm Pain (Dressing in place right arm) Sepsis Event Note - Evaluation Sepsis Screening Result: No Definite Risk - Focused Exam Vital Signs: Vital Signs Temp Temp Pulse Pulse Resp BP Pulse Ox 01/21/19 10:31 98.1 F 71 16 119/55 L 93 L 01/21/19 09:15 71 15 109/56 L 94 L 01/21/19 08:45 74 16 115/57 L 94 L 01/21/19 08:30 68 16 125/76 94 L 12/10/19 08:15 69 16 118/64 94 L 01/21/19 08:00 97.4 F 73 16 118/69 91 L 01/21/19 07:51 97.5 F 63 12 114/61 95 01/21/19 07:45 69 10 L 121/64 94 L 01/21/19 07:40 64 12 113/57 L 94 L 01/21/19 07:36 66 11 L 121/60 94 L 01/21/19 07:30 97.2 F 68 10 L 122/66 95 01/21/19 02:00 97.9 F 73 18 106/57 L 93 L Date Exam was Performed: 01/21/19 Time Exam was Performed: 13:18 - Problem List Review Problem List Initiated/Reviewed/Updated: Yes - My Orders Last 24 Hours: My Active Orders 01/20/19 14:30 Lactobacillus Rhamnosus GG [Culturelle] 1 cap PO BID 01/21/19 12:23 Convert IV to Saline Lock [OM.PC] Routine 01/22/19 10:30 CREATININE W/GFR [CHEM] Routine VANCOMYCIN TROUGH [CHEM] Timed - Plan Plan:: ASSESSMENT AND PLAN - Cellulitis of the right antecubital fossa with abscess-secondary to IV drug use with infection around the injection site. She does have some associated superficial thrombophlebitis. We'll send surgical debridement yesterday -Antibiotic coverage with vancomycin and Pip/Tazo, and culture results -Pain control -Follow-up cultures -Urgent call follow-up per Dr. Marcano Methamphetamine abuse-recent relapse with IV drug use. -Encourage cessation and offer resources for treatment as available Maintenance issues - - DVT prophylaxis -mechanical - GI prophylaxis -not indicated - Nutrition -regular, nothing by mouth after midnight - Leiva catheter -not indicated Disposition -I would anticipate discharge home after the hospital stay
[2019-01-21] MEDS: Acetaminophen 325 MG Tab PO PRN (16:25)
[2019-01-21] MEDS ORDERED: Nicotine 14 MG/24 Hr Patch TRDERM ONE (23:45)
[2019-01-22] MEDS: Piperacillin/Tazobactam/Dext 3.375 GM in Premix Bag 1 BAG IV SCH ×4 (01:43→19:14)
[2019-01-22] MEDS: Acetaminophen 325 MG Tab PO PRN ×3 (02:44→19:14)
[2019-01-22] MEDS: oxyCODONE 5 MG Tab PO PRN ×5 (02:44→21:05)
[2019-01-22] MEDS: Ibuprofen 600 MG Tab PO PRN ×3 (07:02→21:05)
[2019-01-22] MEDS: Nicotine 14 MG/24 Hr Patch TRDERM SCH (08:53)
[2019-01-22] MEDS: Lactobacillus Rhamnosus GG (Probiotic) Cap PO SCH ×2 (08:53→20:12)
--- NOTE | 2019-01-22 09:23 | PN ---
DATE OF SERVICE: 01/22/2019 SUBJECTIVE: Halle's pain has been controlled. Her dressing was unpacked and changed this morning. She has no questions or concerns. OBJECTIVE: VITAL SIGNS: TPR 97.2, 50, 20, blood pressure 130/66. HEENT: Negative. NECK: Supple. HEART: Regular rate and rhythm. SKIN: Right antecubital area, less redness noted per Ney Marcano MD, around the actual open area and the packing was removed and will be repacked and redressed by nursing staff. ASSESSMENT: Dressing change under general anesthesia on 01/21/2019, and incision and drainage of abscess, right antecubital area on 01/20/2019. PLAN: 1. Continue dressing changes. 2. We will evaluate p.r.n. or in a.m. Isabel Villar PA-C /[id number]
[2019-01-22] MEDS: Ondansetron 4 MG/2 ML SDV IV PRN ×2 (13:25→22:11)
--- NOTE | 2019-01-22 13:37 | PCM.PN ---
- General Info Date of Service: 01/22/19 Subjective Update: Ms. Dumont been stable since yesterday, per Dr. Marcano wound is improved in appearance with less evidence of infection. Vital signs have been stable and she has remained afebrile. Functional Status: Reports: Tolerating Diet, Ambulating, Urinating - Review of Systems General: Denies: Fever, Chills Pulmonary: Reports: No Symptoms Cardiovascular: Reports: No Symptoms Gastrointestinal: Reports: No Symptoms Musculoskeletal: Reports: Arm Pain - Patient Data Vitals - Most Recent: Last Vital Signs Temp 97 F 01/22/19 13:24 Pulse 62 01/22/19 11:19 Resp 16 01/22/19 11:19 BP 139/83 01/22/19 11:19 Pulse Ox 95 01/22/19 11:19 Weight - Most Recent: 209 lb I&O - Last 24 Hours: Intake & Output 01/21/19 01/22/19 01/22/19 22:59 06:59 14:59 Intake Total 1500 300 50 Output Total 675 750 Balance 825 -450 50 Lab Results Last 24 Hours: Laboratory Results - last 24 hr 01/22/19 Range/Units 10:30 Creatinine 0.9 (0.6-1.0) mg/dL Est Cr Clr Drug Dosing 72.17 mL/min Estimated GFR (MDRD) > 60 (>60) Vancomycin Trough 19.4 (10.0-20.0) ug/mL Shravan Results Last 24 Hours: Microbiology 01/20/19 12:04 Gram Stain - Final Arm, Right - Upper Wound Culture - Preliminary Anaerobic Culture - Preliminary NO GROWTH AFTER 1 DAY 01/17/19 21:30 Aerobic Blood Culture - Preliminary Blood - Venous - Iv Start NO GROWTH AFTER 4 DAYS Anaerobic Blood Culture - Preliminary NO GROWTH AFTER 4 DAYS 01/17/19 21:30 Aerobic Blood Culture - Preliminary Blood - Venous - Iv Start NO GROWTH AFTER 4 DAYS Anaerobic Blood Culture - Preliminary NO GROWTH AFTER 4 DAYS Med Orders - Current: Current Medications Acetaminophen (Tylenol) 650 mg PO Q4H PRN PRN Reason: Fever Last Admin: 01/22/19 11:18 Dose: 650 mg Piperacillin/Tazobactam/ (Dextrose 3.375 gm/ Premix) 50 mls @ 100 mls/hr IV Q6H [facility] Last Admin: 01/22/19 07:46 Dose: 100 mls/hr Vancomycin HCl 1.2 gm/ Sodium (Chloride) 250 mls @ 150 mls/hr IV Q8H [facility] Ibuprofen (Motrin) 600 mg PO Q6H PRN PRN Reason: Pain Last Admin: 01/22/19 13:24 Dose: 600 mg Lactobacillus Rhamnosus (Culturelle) 1 cap PO BID [facility] Last Admin: 01/22/19 08:53 Dose: 1 cap Miscellaneous Information (Remove Patch) 1 ea TRDERM Q24H [facility] Last Admin: 01/22/19 08:54 Dose: Not Given Morphine Sulfate (Morphine) 4 mg IVPUSH Q1H PRN PRN Reason: Pain Last Admin: 01/20/19 23:23 Dose: 4 mg Nicotine (Habitrol) 14 mg TRDERM DAILY [facility] Last Admin: 01/22/19 08:53 Dose: 14 mg Ondansetron HCl (Zofran) 4 mg IV Q4H PRN PRN Reason: Nausea/Vomiting Last Admin: 01/22/19 13:25 Dose: 4 mg Oxycodone HCl (Oxycodone) 5 - 10 mg PO Q4H PRN PRN Reason: Pain Last Admin: 01/22/19 11:17 Dose: 5 mg Discontinued Medications Albuterol/Ipratropium (Duoneb 3.0-0.5 Mg/3 Ml) 3 ml NEB ONETIME ONE Stop: 01/20/19 12:01 Last Admin: 01/20/19 12:51 Dose: 3 ml Bupivacaine HCl (Marcaine 0.5%) Confirm Administered Dose 50 ml .ROUTE .STK-MED ONE Stop: 01/21/19 06:34 Dexamethasone (Dexamethasone) Confirm Administered Dose 4 mg .ROUTE .STK-MED ONE Stop: 01/20/19 11:14 Enoxaparin Sodium (Lovenox) 93.4 mg SUBCUT ONETIME ONE Stop: 01/17/19 23:01 Last Admin: 01/17/19 23:15 Dose: 93.4 mg Fentanyl (Sublimaze) Confirm Administered Dose 100 mcg .ROUTE .STK-MED ONE Stop: 01/20/19 09:30 Fentanyl (Sublimaze) Confirm Administered Dose 250 mcg .ROUTE .STK-MED ONE Stop: 01/20/19 11:21 Fentanyl (Sublimaze) Confirm Administered Dose 100 mcg .ROUTE .STK-MED ONE Stop: 01/21/19 07:10 Glycopyrrolate (Robinul) Confirm Administered Dose 1 mg .ROUTE .[facility] ONE Stop: 01/20/19 11:14 Sodium Chloride (Normal Saline) 1,000 mls @ 999 mls/hr IV .BOLUS MERE Sodium Chloride (Normal Saline) 1,000 mls @ 999 mls/hr IV ASDIRECTED [facility] Last Admin: 01/17/19 21:41 Dose: 999 mls/hr Ceftriaxone Sodium 2 gm/ (Sodium Chloride) 50 mls @ 100 mls/hr IV ONETIME ONE Stop: 01/17/19 23:28 Last Admin: 01/17/19 23:16 Dose: 100 mls/hr Vancomycin HCl 1.5 gm/ Sodium (Chloride) 250 mls @ 150 mls/hr IV ONETIME ONE Stop: 01/18/19 00:35 Last Admin: 01/17/19 23:53 Dose: 150 mls/hr Sterile Water (Sterile Water For Injection) Confirm Administered Dose 20 mls @ as directed .ROUTE .[facility] ONE Stop: 01/17/19 23:16 Last Admin: 01/17/19 23:22 Dose: Not Given Sterile Water (Sterile Water For Injection) Confirm Administered Dose 20 mls @ as directed .ROUTE .[facility] ONE Stop: 01/17/19 23:19 Last Admin: 01/17/19 23:23 Dose: Not Given Sodium Chloride (Normal Saline) 1,000 mls @ 125 mls/hr IV ASDIRECTED [facility] Last Admin: 01/20/19 02:30 Dose: 125 mls/hr Vancomycin HCl 1.5 gm/ Sodium (Chloride) 250 mls @ 150 mls/hr IV Q12H [facility] Last Admin: 01/19/19 23:14 Dose: 150 mls/hr Dextrose/Lactated Ringer's (Dextrose 5%-Lactated Ringers) 1,000 mls @ 125 mls/ hr IV ASDIRECTED [facility] Last Admin: 01/20/19 23:27 Dose: 125 mls/hr Linezolid (Zyvox) Confirm Administered Dose 300 mls @ as directed .ROUTE .[facility] ONE Stop: 01/20/19 10:28 Vancomycin HCl 1.5 gm/ Sodium (Chloride) 250 mls @ 150 mls/hr IV Q8H [facility] Last Admin: 12/11/19 02:35 Dose: 150 mls/hr Lidocaine/Epinephrine (Xylocaine 1% With Epinephrine 1:100,000) Confirm Administered Dose 50 ml .ROUTE .STK-MED ONE Stop: 01/21/19 06:34 Linezolid (Zyvox) 600 mg IRR .STK-MED ONE Stop: 01/20/19 11:11 Last Admin: 01/20/19 11:10 Dose: 600 mg Meropenem (Merrem) Confirm Administered Dose 500 mg .ROUTE .STK-MED ONE Stop: 01/20/19 10:28 Meropenem (Merrem) Confirm Administered Dose 500 mg .ROUTE .STK-MED ONE Stop: 01/21/19 06:35 Midazolam HCl (Versed 1 Mg/Ml) Confirm Administered Dose 2 mg .ROUTE .STK-MED ONE Stop: 01/20/19 09:30 Midazolam HCl (Versed 1 Mg/Ml) Confirm Administered Dose 2 mg .ROUTE .STK-MED ONE Stop: 01/21/19 07:10 Morphine Sulfate (Morphine) 4 mg IVPUSH ONETIME ONE Stop: 01/17/19 21:44 Last Admin: 01/17/19 21:48 Dose: 4 mg Morphine Sulfate (Morphine) 4 mg IVPUSH ONETIME ONE Stop: 01/17/19 23:04 Last Admin: 01/17/19 23:08 Dose: 4 mg Morphine Sulfate (Morphine) 2 mg IVPUSH Q1H PRN PRN Reason: Pain Neostigmine Methylsulfate (Neostigmine) Confirm Administered Dose 5 mg .ROUTE .STK-MED ONE Stop: 01/20/19 11:14 Nicotine (Habitrol) 14 mg TRDERM DAILY@2100 [facility] Nicotine (Habitrol) 14 mg TRDERM ONETIME ONE Stop: 01/21/19 23:46 Last Admin: 01/22/19 00:03 Dose: 14 mg Ondansetron HCl (Zofran) Confirm Administered Dose 4 mg .ROUTE .STK-MED ONE Stop: 01/20/19 11:14 Potassium Chloride (Klor-Con M20) 40 meq PO ONETIME ONE Stop: 01/18/19 10:31 Last Admin: 01/18/19 11:44 Dose: 40 meq Propofol (Diprivan 20 Ml) Confirm Administered Dose 200 mg .ROUTE .STK-MED ONE Stop: 01/20/19 09:30 Propofol (Diprivan 20 Ml) Confirm Administered Dose 200 mg .ROUTE .STK-MED ONE Stop: 01/21/19 07:10 Rocuronium [place] (Zemuron) Confirm Administered Dose 50 mg .ROUTE .STK-MED ONE Stop: 01/20/19 11:13 - Exam General: Alert, Oriented, Cooperative, Mild Distress Lungs: Clear to Auscultation, Normal Respiratory Effort Cardiovascular: Regular Rate, Regular Rhythm, No Murmurs GI/Abdominal Exam: Soft, Non-Tender, No Organomegaly, No Distention Extremities: Arm Pain (Dressing in place right arm) Sepsis Event Note - Evaluation Sepsis Screening Result: No Definite Risk - Focused Exam Vital Signs: Vital Signs Temp Temp Pulse Pulse Resp BP Pulse Ox 01/22/19 13:24 97 F 01/22/19 11:19 97.6 F 62 16 139/83 95 01/22/19 07:23 97.2 F 50 L 20 130/66 93 L 01/22/19 02:37 97.9 F 64 18 113/62 94 L Date Exam was Performed: 01/22/19 Time Exam was Performed: 13:33 - Problem List Review Problem List Initiated/Reviewed/Updated: Yes - My Orders Last 24 Hours: My Active Orders 01/22/19 09:00 Remove Patch 1 ea TRDERM Q24H - Plan Plan:: ASSESSMENT AND PLAN - Cellulitis of the right antecubital fossa with abscess-secondary to IV drug use with infection around the injection site. Less pain today, wound culture showing no growth -Antibiotic coverage with vancomycin and Pip/Tazo, pending culture results -Pain control -Follow-up cultures -Surgical follow-up per Dr. Marcano Methamphetamine abuse-recent relapse with IV drug use. -Encourage cessation and offer resources for treatment as available Maintenance issues - - DVT prophylaxis -mechanical - GI prophylaxis -not indicated - Nutrition -regular, nothing by mouth after midnight - Leiva catheter -not indicated Disposition -I would anticipate discharge home tomorrow
[2019-01-22] MEDS: Vancomycin 1.2 GM in Sodium Chloride 0.9% 250 ML IV SCH ×2 (14:37→21:04)
[2019-01-22] MEDS ORDERED: Nicotine 14 MG/24 Hr Patch TRDERM SCH (21:00)
[2019-01-23] MEDS: Piperacillin/Tazobactam/Dext 3.375 GM in Premix Bag 1 BAG IV SCH ×2 (01:53→08:45)
[2019-01-23] MEDS: oxyCODONE 5 MG Tab PO PRN ×3 (04:27→12:49)
[2019-01-23] MEDS: Vancomycin 1.2 GM in Sodium Chloride 0.9% 250 ML IV SCH (05:46)
[2019-01-23] MEDS: Nicotine 14 MG/24 Hr Patch TRDERM SCH (08:49)
[2019-01-23] MEDS: Lactobacillus Rhamnosus GG (Probiotic) Cap PO SCH (08:50)
[2019-01-23] MEDS: Ciprofloxacin 500 MG Tab PO SCH ×2 (08:50→11:09)
--- NOTE | 2019-01-23 08:54 | PN ---
DATE OF SERVICE: 01/23/2019 SUBJECTIVE: Halle will be discharged per Dr. Vahid Roberts today. She reports pain is controlled. Right antecubital dressing is dry and intact. Vital signs have been stable. REVIEW OF SYSTEMS: Remainder of review of systems negative for any pertinent positives and negatives. OBJECTIVE: GENERAL: Halle is a 33-year-old female. She is alert and orientated. VITAL SIGNS: TPR 95.3, 56, 18, blood pressure 113/70. HEENT: Negative. NECK: Supple. HEART: Regular rate and rhythm. LUNGS: Clear. SKIN: Right antecubital area dressing is dry and intact. ASSESSMENT: 1. Dressing change under general anesthesia on 01/21/2019. 2. Incision and drainage of abscess, right antecubital area on 01/20/2019. 3. Dr. Ney Marcano, surgeon. PLAN: 1. To be discharged on Cipro 500 mg b.i.d. orally for 10 days. 2. Follow up with Ney Marcano MD, at [facility] on 01/29/2019 at 11 a.m. 3. Dressing changes per written order to change once daily after showering, to pack with dry 4x4 using a cotton tip applicator and then put 4x4 gauze, 3 to 4 pieces on top of open wound, secure with wrapping Kerlix around arm and do this once daily. Isabel Villar PA-C /[id number]
[2019-01-23 10:22] VITALS: BP 123/82; PULSE 58
--- NOTE | 2019-01-23 13:13 | PCM.DCSUM1 ---
Discharge Summary - Hospital Course Brief History: Ms. Dumont is a 33-year-old woman who developed an infection in the antecubital fossa of her right hand, secondary to IV drug use. Symptoms became worse and she presented to the emergency department for further evaluation. She was admitted for management of cellulitis. - Discharge Data Discharge Date: 01/23/19 Discharge Disposition: Home, W Home Health Agency 06 Condition: Stable - Referral to Home Health Date of Face to Face Encounter: 01/23/19 Reason for Homebound Status: weakness Primary Care Physician: Anitha Marcano NP Skilled Need: Dressing change - Discharge Diagnosis/Problem(s) (1) Abscess SNOMED Code(s): 044060581 ICD Code: L02.91 - CUTANEOUS ABSCESS, UNSPECIFIED Status: Acute (2) Cellulitis SNOMED Code(s): 955936805 ICD Code: L03.90 - CELLULITIS, UNSPECIFIED Status: Acute (3) IV drug user SNOMED Code(s): 838949725 ICD Code: F19.90 - OTHER PSYCHOACTIVE SUBSTANCE USE, UNSPECIFIED, UNCOMPLICATED Status: Acute - Patient Summary/Data Consults: Consultations 01/19/19 12:51 Consult to Physician [CONS] Routine Consulting Provider: Ney Marcanoesy Call Completed to Consulting Physician: Yes Reason for Consult: right AC fossa abscess Person Notified: GABRIEL Date Notified: 01/19/19 Special Instructions: surgery in the morning Hospital Course: Ms. Dumont is a 33-year-old woman who was admitted through the emergency department with cellulitis of her right upper extremity. She had recently used IV drugs and developed progressive infection in the right antecubital fossa. When seen in the emergency department was felt to have significant cellulitis in the forearm and antecubital fossa. Ultrasound was obtained and showed no evidence of abscess on admission. Blood cultures were obtained and remained negative throughout hospital stay. She did develop increased fullness in the right antecubital fossa over the first few days of hospitalization. Ultrasound was repeated and showed evidence of underlying abscess. On admission she had been started on vancomycin and ceftriaxone, ceftriaxone was discontinued and she was placed on Zosyn. She was seen and evaluated by Dr. Marcano on January 20 she underwent I&D of the abscess. Cultures grew out alpha strep. She remained on vancomycin and Zosyn until the day prior to discharge and then was transitioned to oral antibiotic therapy with ciprofloxacin. She will be discharged home with home care assistance and daily dressing changes. She will be treated with an additional week of antibiotic therapy with ciprofloxacin until she is seen for follow-up by Dr. Marcano. Follow-up appointment will also be scheduled with her primary care provider within 1 week. Activity will be as tolerated and she will resume her usual diet. - Patient Instructions Diet: Usual Diet as Tolerated Activity: As Tolerated Other/Special Instructions: JACOB w/ Dr. Marcano as ordered, wound care as ordered by Dr. Marcano. FU w/ primary care provider w/in 1 week. Home care FU after discharge. - Discharge Plan *PRESCRIPTION DRUG MONITORING PROGRAM REVIEWED*: No *COPY OF PRESCRIPTION DRUG MONITORING REPORT IN PATIENT NEFTALI: No Prescriptions/Med Rec: Ciprofloxacin [Ciprofloxacin HCl] 500 mg PO Q12H #14 tablet Lactobacillus Rhamnosus GG [Culturelle] 1 cap PO BID #60 cap oxyCODONE 5 mg PO Q4H PRN #16 tablet PRN Reason: Pain Home Medications: Home Meds Ciprofloxacin [Ciprofloxacin HCl] 500 mg PO Q12H #14 tablet 01/23/19 [Rx] Lactobacillus Rhamnosus GG [Culturelle] 1 cap PO BID #60 cap 01/23/19 [Rx] oxyCODONE 5 mg PO Q4H PRN #16 tablet 01/23/19 [Rx] Patient Handouts: Preventing Constipation After Surgery Referrals: Ney Marcano MD [Physician] - 01/29/19 11:00 am Anitha Marcano NP [Primary Care Provider] - 01/30/19 12:30 pm (In [place]) - Discharge Summary/Plan Comment DC Time >30 min.: No - Patient Data Vitals - Most Recent: Last Vital Signs Temp 97.5 F 01/23/19 10:22 Pulse 58 L 01/23/19 10:22 Resp 18 01/23/19 10:22 BP 123/82 01/23/19 10:22 Pulse Ox 94 L 01/23/19 10:22 Weight - Most Recent: 209 lb I&O - Last 24 hours: Intake & Output 01/22/19 01/23/19 01/23/19 22:59 06:59 14:59 Intake Total 1200 300 370 Output Total 600 1000 1000 Balance 600 -700 -630 Lab Results - Last 24 hrs: Laboratory Results - last 24 hr 01/23/19 Range/Units 04:10 Creatinine 0.8 (0.6-1.0) mg/dL Est Cr Clr Drug Dosing 81.19 mL/min Estimated GFR (MDRD) > 60 (>60) EMMETT Results - Last 24 hrs: Microbiology 01/20/19 12:04 Gram Stain - Final Arm, Right - Upper Wound Culture - Preliminary Alpha Strep, Not Pneumococcus Alpha Strep, Not Pneumococcus#2 Gram Positive Rods Anaerobic Culture - Preliminary NO GROWTH AFTER 2 DAYS 01/17/19 21:30 Aerobic Blood Culture - Final Blood - Venous - Iv Start NO GROWTH AFTER 5 DAYS Anaerobic Blood Culture - Final NO GROWTH AFTER 5 DAYS 01/17/19 21:30 Aerobic Blood Culture - Final Blood - Venous - Iv Start NO GROWTH AFTER 5 DAYS Anaerobic Blood Culture - Final NO GROWTH AFTER 5 DAYS Med Orders - Current: Current Medications Acetaminophen (Tylenol) 650 mg PO Q4H PRN PRN Reason: Fever Last Admin: 01/22/19 19:14 Dose: 650 mg Ciprofloxacin (Ciprofloxacin Hcl) 500 mg PO Q12H [facility] Last Admin: 01/23/19 11:09 Dose: Not Given Piperacillin/Tazobactam/ (Dextrose 3.375 gm/ Premix) 50 mls @ 100 mls/hr IV Q6H [facility] Last Admin: 01/23/19 08:45 Dose: 100 mls/hr Vancomycin HCl 1.2 gm/ Sodium (Chloride) 250 mls @ 150 mls/hr IV Q8H [facility] Last Admin: 01/23/19 05:46 Dose: 150 mls/hr Ibuprofen (Motrin) 600 mg PO Q6H PRN PRN Reason: Pain Last Admin: 01/22/19 21:05 Dose: 600 mg Lactobacillus Rhamnosus (Culturelle) 1 cap PO BID [facility] Last Admin: 01/23/19 08:50 Dose: 1 cap Miscellaneous Information (Remove Patch) 1 ea TRDERM Q24H [facility] Last Admin: 01/23/19 11:09 Dose: Not Given Morphine Sulfate (Morphine) 4 mg IVPUSH Q1H PRN PRN Reason: Pain Last Admin: 01/20/19 23:23 Dose: 4 mg Nicotine (Habitrol) 14 mg TRDERM DAILY [facility] Last Admin: 01/23/19 08:49 Dose: 14 mg Ondansetron HCl (Zofran) 4 mg IV Q4H PRN PRN Reason: Nausea/Vomiting Last Admin: 01/22/19 22:11 Dose: 4 mg Oxycodone HCl (Oxycodone) 5 - 10 mg PO Q4H PRN PRN Reason: Pain Last Admin: 01/23/19 12:49 Dose: 10 mg Discontinued Medications Albuterol/Ipratropium (Duoneb 3.0-0.5 Mg/3 Ml) 3 ml NEB ONETIME ONE Stop: 01/20/19 12:01 Last Admin: 01/20/19 12:51 Dose: 3 ml Bupivacaine HCl (Marcaine 0.5%) Confirm Administered Dose 50 ml .ROUTE .STK-MED ONE Stop: 01/21/19 06:34 Dexamethasone (Dexamethasone) Confirm Administered Dose 4 mg .ROUTE .STK-MED ONE Stop: 01/20/19 11:14 Enoxaparin Sodium (Lovenox) 93.4 mg SUBCUT ONETIME ONE Stop: 01/17/19 23:01 Last Admin: 01/17/19 23:15 Dose: 93.4 mg Fentanyl (Sublimaze) Confirm Administered Dose 100 mcg .ROUTE .STK-MED ONE Stop: 01/20/19 09:30 Fentanyl (Sublimaze) Confirm Administered Dose 250 mcg .ROUTE .STK-MED ONE Stop: 01/20/19 11:21 Fentanyl (Sublimaze) Confirm Administered Dose 100 mcg .ROUTE .STK-MED ONE Stop: 01/21/19 07:10 Glycopyrrolate (Robinul) Confirm Administered Dose 1 mg .ROUTE .STK-MED ONE Stop: 01/20/19 11:14 Sodium Chloride (Normal Saline) 1,000 mls @ 999 mls/hr IV .BOLUS MERE Sodium Chloride (Normal Saline) 1,000 mls @ 999 mls/hr IV ASDIRECTED [facility] Last Admin: 01/17/19 21:41 Dose: 999 mls/hr Ceftriaxone Sodium 2 gm/ (Sodium Chloride) 50 mls @ 100 mls/hr IV ONETIME ONE Stop: 01/17/19 23:28 Last Admin: 01/17/19 23:16 Dose: 100 mls/hr Vancomycin HCl 1.5 gm/ Sodium (Chloride) 250 mls @ 150 mls/hr IV ONETIME ONE Stop: 01/18/19 00:35 Last Admin: 01/17/19 23:53 Dose: 150 mls/hr Sterile Water (Sterile Water For Injection) Confirm Administered Dose 20 mls @ as directed .ROUTE .STK-MED ONE Stop: 01/17/19 23:16 Last Admin: 01/17/19 23:22 Dose: Not Given Sterile Water (Sterile Water For Injection) Confirm Administered Dose 20 mls @ as directed .ROUTE .STK-MED ONE Stop: 01/17/19 23:19 Last Admin: 01/17/19 23:23 Dose: Not Given Sodium Chloride (Normal Saline) 1,000 mls @ 125 mls/hr IV ASDIRECTED [facility] Last Admin: 01/20/19 02:30 Dose: 125 mls/hr Vancomycin HCl 1.5 gm/ Sodium (Chloride) 250 mls @ 150 mls/hr IV Q12H [facility] Last Admin: 01/19/19 23:14 Dose: 150 mls/hr Dextrose/Lactated Ringer's (Dextrose 5%-Lactated Ringers) 1,000 mls @ 125 mls/ hr IV ASDIRECTED [facility] Last Admin: 01/20/19 23:27 Dose: 125 mls/hr Linezolid (Zyvox) Confirm Administered Dose 300 mls @ as directed .ROUTE .STK- MED ONE Stop: 01/20/19 10:28 Vancomycin HCl 1.5 gm/ Sodium (Chloride) 250 mls @ 150 mls/hr IV Q8H [facility] Last Admin: 01/22/19 02:35 Dose: 150 mls/hr Lidocaine/Epinephrine (Xylocaine 1% With Epinephrine 1:100,000) Confirm Administered Dose 50 ml .ROUTE .STK-MED ONE Stop: 01/21/19 06:34 Linezolid (Zyvox) 600 mg IRR .STK-MED ONE Stop: 01/20/19 11:11 Last Admin: 01/20/19 11:10 Dose: 600 mg Meropenem (Merrem) Confirm Administered Dose 500 mg .ROUTE .STK-MED ONE Stop: 01/20/19 10:28 Meropenem (Merrem) Confirm Administered Dose 500 mg .ROUTE .STK-MED ONE Stop: 01/21/19 06:35 Midazolam HCl (Versed 1 Mg/Ml) Confirm Administered Dose 2 mg .ROUTE .STK-MED ONE Stop: 01/20/19 09:30 Midazolam HCl (Versed 1 Mg/Ml) Confirm Administered Dose 2 mg .ROUTE .STK-MED ONE Stop: 01/21/19 07:10 Morphine Sulfate (Morphine) 4 mg IVPUSH ONETIME ONE Stop: 01/17/19 21:44 Last Admin: 01/17/19 21:48 Dose: 4 mg Morphine Sulfate (Morphine) 4 mg IVPUSH ONETIME ONE Stop: 01/17/19 23:04 Last Admin: 01/17/19 23:08 Dose: 4 mg Morphine Sulfate (Morphine) 2 mg IVPUSH Q1H PRN PRN Reason: Pain Neostigmine Methylsulfate (Neostigmine) Confirm Administered Dose 5 mg .ROUTE .STK-MED ONE Stop: 01/20/19 11:14 Nicotine (Habitrol) 14 mg TRDERM DAILY@2100 [facility] Nicotine (Habitrol) 14 mg TRDERM ONETIME ONE Stop: 01/21/19 23:46 Last Admin: 01/22/19 00:03 Dose: 14 mg Ondansetron HCl (Zofran) Confirm Administered Dose 4 mg .ROUTE .STK-MED ONE Stop: 01/20/19 11:14 Potassium Chloride (Klor-Con M20) 40 meq PO ONETIME ONE Stop: 01/18/19 10:31 Last Admin: 01/18/19 11:44 Dose: 40 meq Propofol (Diprivan 20 Ml) Confirm Administered Dose 200 mg .ROUTE .STK-MED ONE Stop: 01/20/19 09:30 Propofol (Diprivan 20 Ml) Confirm Administered Dose 200 mg .ROUTE .STK-MED ONE Stop: 01/21/19 07:10 Rocuronium [place] (Zemuron) Confirm Administered Dose 50 mg .ROUTE .STK-MED ONE Stop: 01/20/19 11:13 - Exam General: Reports: Alert, Oriented, Cooperative, Mild Distress Lungs: Reports: Clear to Auscultation, Normal Respiratory Effort Cardiovascular: Reports: Regular Rate, Regular Rhythm, No Murmurs GI/Abdominal Exam: Soft, Non-Tender, No Organomegaly, No Distention Extremities: Other (Surgical dressing in place right antecubital fossa)
--- NOTE | 2019-01-29 13:23 | OR ---
CORRECTED REPORT DATE OF PROCEDURE: 01/20/2019 SURGEON: Ney Marcano MD PREOPERATIVE DIAGNOSIS: Soft tissue necrosis, probable abscess formation, right antecubital fossa, secondary to methamphetamine injection. POSTOPERATIVE DIAGNOSIS: Soft tissue necrosis and abscess, right antecubital fossa, secondary to methamphetamine injection. OPERATIVE PROCEDURE: Exploration of right antecubital fossa with: 1. Incision and drainage of abscess (99072). 2. Debridement of the soft tissue necrosis (10146). ANESTHESIA: General. [employer] POWER SHOVEL: Sergio Watson MS-3 INDICATION FOR PROCEDURE: This is a 33-year-old who was admitted on 01/17/19 with a picture of cellulitis involving the right antecubital fossa after injecting methamphetamine into that area, apparently not hitting the vein satisfactorily, resulting in a soft tissue inflammation. At this point, she appears to have developed more of an abscess, and plan is to proceed with incision and drainage and debridement of the areas as indicated. Potential risks including bleeding, infection, possible problems with blood supply to the arm as the brachial artery needs to be sacrificed, possible nerve injuries were all reviewed, and the patient wishes to proceed. DETAILS OF PROCEDURE: The patient was taken to the operating room, and after general endotracheal anesthesia was induced, the right arm was prepped and draped. At this point, the patient had spontaneously drained somewhat through a small opening, and a Marilee clamp was then placed, which directed the obliquely oriented elliptical incision of skin. The purulent material was evacuated and cultures obtained. Some of the necrotic soft tissue over the area, including skin and subcutaneous tissue, and some underlying fascia was then debrided. The basilic vein was essentially necrotic as well, and this, upon initially being clamped, simply broke off at the edge of the wound. The edges of the vein were proximally and distally cut off with 4-0 Vicryl suture ligatures. At that point, no further problems were noted. The plane of infection did not, in this case, go deep to primary muscular fascia, i.e. the brachial artery was not involved. Iodoform gauze was then used to pack the wound, which was also soaked with some Zyvox-containing antibiotic solution, and the patient was taken to the recovery room in satisfactory condition. There were no evident complications. Ney Marcano MD /[id number]
--- NOTE | 2019-01-29 16:05 | OR ---
DATE OF PROCEDURE: 01/21/2019 SURGEON: Ney Marcano MD PREOPERATIVE DIAGNOSIS: Open wound, right arm. POSTOPERATIVE DIAGNOSIS: Open wound, right arm, with persistent surrounding redness and edema. OPERATIVE PROCEDURE: Dressing change under anesthesia ([id number]). ANESTHESIA: IV sedation. RIB BUILDER: Sergio Watson MS-3. INDICATION FOR PROCEDURE: The patient is 1 day status post incision, drainage, and debridement of a wound in the right antecubital fossa. This was result of methamphetamine injection. The patient to undergo a reinspection of the wound at this point to make sure there are not any additional necrotic areas that need to be debrided. Potential risks including bleeding and further infection were reviewed and the patient wishes to proceed. DETAILS OF PROCEDURE: The patient was taken to the operating room, placed in a supine position. IV sedation was administered, after which the dressing around the right arm was taken down and the wound inspected. This area was then prepped and draped. There was still quite a bit of redness and edema in the soft tissue surrounding the wound. No additional purulence or necrosis was evident. Given this, I did a dressing consisting of iodoform gauze soaked with some Zyvox solution was placed and the patient was taken to the recovery room in satisfactory condition. Plan will be to monitor, to do the dressing change and inspection of the wound at the bedside. Ney Marcano MD /[id number]
== END 2019-01-23 14:10 | disposition home health service (06) | DRG 572 ==
LOC: JP.ED 20:02 → JP.MS 23:44
PROVIDERS: ADMIT Family Medicine; ATTEND Hospitalist
PROC: 0JBG0ZZ Excision of Right Lower Arm Subcutaneous Tissue and Fascia, Open Approach (ICD-10-PCS; principal; 2019-01-20)
DX: L03.113 Cellulitis of right upper limb (principal); F15.10 Other stimulant abuse, uncomplicated; I80.8 Phlebitis and thrombophlebitis of other sites; F31.9 Bipolar disorder, unspecified; F41.0 Panic disorder [episodic paroxysmal anxiety]; F17.210 Nicotine dependence, cigarettes, uncomplicated; E66.9 Obesity, unspecified; H54.7 Unspecified visual loss; Z68.37 Body mass index [BMI] 37.0-37.9, adult
CPT/HCPCS: 36415; 76881-RT; 80048; 80053; 80202; 80305-QW; 81025; 82565; 83605; 85025; 85027; 85651; 86140; 87040; 87070; 87075; 87077; 87205; 88304; 93971-RT; 94640; 96361; 96365; 96372; 96375; 99284; 99285-25; A9270-GY; J0696; J1100; J1650; J2020; J2185; J2250; J2270; J2405; J2543; J2704; J2710; J3010; J3370; J3490; J7030; J7050; J7121; J7620-GY

== ENCOUNTER 2019-08-03 13:58 | Emergency (ER) | payer MEDICAID ==
[2019-08-03 14:57] VITALS: BP 115/67; PULSE 80
--- NOTE | 2019-08-03 15:10 | EDM.PDOC ---
ED HPI GENERAL MEDICAL PROBLEM - General Chief Complaint: Skin Complaint Stated Complaint: RT ELBOW SWOLLEN Time Seen by Provider: 08/03/19 15:10 Source of Information: Reports: Patient History Limitations: Reports: No Limitations - History of Present Illness INITIAL COMMENTS - FREE TEXT/NARRATIVE: 33 year old female present to [facility] for right arm/elbow swelling which started last night. Patient has slight chills and sweats with significant localized pain. Patient took Tylenol and Ibuprofen 800mg this am with slight improvement of symptoms but recurrence. Patient is/was an IV drug user patient admits to use but last use was Sunday, which resulted in going to detox and has not used since Sunday. Patient states the last time she had a similar infection she as hospitalized and given IV antibiotics for infection in her blood stream. Right Arm Pain Score (Numeric/FACES): 5 - Related Data Allergies Allergy/AdvReac Type Severity Reaction Status Date / Time No Known Allergies Allergy Verified 08/03/19 15:05 Home Meds: Home Meds Amoxicillin/Clavulanate K [Augmentin 875-125 MG] 1 tab PO BID 10 Days #20 tablet 08/03/19 [Rx] Ibuprofen 600 mg PO Q6H PRN 20 Days #40 tablet 08/03/19 [Rx] Naproxen 500 mg PO Q8H PRN #30 tablet 08/03/19 [Rx] Past Medical History HEENT History: Reports: Impaired Vision CRA History: Reports: Psychiatric History: Reports: Addiction, Anxiety, Bipolar, Depression, Panic Attack, Psych Hospitalization(s), Suicide Attempt, Suicidal Ideation Other Psychiatric History: She was at [facility] not to long ago. Unable to obtain if it was a suicide attempt. 05/09/2016 Endocrine/Metabolic History: Reports: Obesity/BMI 30+ - Infectious Disease History Infectious Disease History: Reports: Chicken Pox - Past Surgical History Head Surgeries/Procedures: Reports: None HEENT Surgical History: Reports: Eye Surgery Dermatological Surgical History: Reports: Other (See Below) Social & Family History - Caffeine Use Caffeine Use: Reports: Soda ED ROS GENERAL - Review of Systems Review Of Systems: Comprehensive ROS is negative, except as noted in HPI. ED EXAM, SKIN/RASH Exam: See Below Exam Limited By: No Limitations General Appearance: Alert, WD/WN, Moderate Distress (right elbow) Eye Exam: Bilateral Eye: EOMI, Normal Inspection Ears: Normal External Exam, Hearing Grossly Normal Nose: Normal Inspection Throat/Mouth: Normal Inspection, Normal Voice, No Airway Compromise Neck: Normal Inspection, Supple, Non-Tender, Full Range of Motion Respiratory/Chest: No Respiratory Distress, Lungs Clear, Normal Breath Sounds Cardiovascular: Normal Peripheral Pulses, Regular Rate, Rhythm Peripheral Pulses: 4+: Radial (L), Radial (R) GI/Abdominal: Non-Tender (Female) Exam: Deferred Rectal (Female) Exam: Deferred Extremities: Arm Pain (localized erythema, swelling and induration with flucuance over radial aspect of elbow. Antecubital space is clear with scarring noted form previosu infections. ), Limited Range of Motion (right elbow due to soft tissue swelling and infection ) Neurological: Alert, Oriented, CN II-XII Intact, Normal Cognition, Normal Gait, Normal Reflexes, No Motor/Sensory Deficits Psychiatric: Normal Mood, Flat Affect (poor eye contact and very soft spoken ) ED SKIN PROCEDURES - I&D Skin Prep: Providone-Iodine (Betadine) Local Anesthesia: Lidocaine: 1% with EPI Local Anesthetic Volume: Other (10 cc) Probed to Break Up Loculations: Yes Packed With: Other (Iodoform loop tied between two skin incissions ) Sterile Dressinx4(s) Complications: Yes (IV Drug use history) Complication Description: US Soft Tissue completed: Obvious soft tissue cobblestoning and drainable abscess noted under area of fluctuance Course - Vital Signs Last Recorded V/S: Last Vital Signs Temp 36.0 C L 08/03/19 15:11 Pulse 80 08/03/19 15:11 Resp 12 08/03/19 15:11 BP 115/67 08/03/19 15:11 Pulse Ox 99 08/03/19 15:11 - Orders/Labs/Meds Orders: Active Orders 24 hr Category Date Time Status Peripheral IV Care [RC] . DIRECTED Care 08/03/19 15:30 Active Sodium Chloride 0.9% [Saline Flush] Med 08/03/19 15:30 Active 10 ml FLUSH ASDIRECTED PRN Peripheral IV Insertion Adult [OM.PC] Urgent Oth 08/03/19 15:29 Ordered Medication Orders Sodium Chloride (Saline Flush) 10 ml FLUSH ASDIRECTED PRN PRN Reason: Keep Vein Open Last Admin: 08/03/19 16:57 Dose: 10 ml Documented by: Admin: 08/03/19 16:49 Dose: 10 ml Documented by: Admin: 08/03/19 16:00 Dose: 10 ml Documented by: GRACIELA Labs: Laboratory Tests 08/03/19 08/03/19 Range/Units 15:29 15:54 WBC 10.4 (4.5-11.0) K/uL RBC 4.44 (3.30-5.50) M/uL Hgb 12.8 D (12.0-15.0) g/dL Hct 39.1 (36.0-48.0) % MCV 88 (80-98) fL MCH 29 (27-31) pg MCHC 33 (32-36) % Plt Count 327 (150-400) K/uL Neut % (Auto) 74 H (36-66) % Lymph % (Auto) 15 L (24-44) % [place] % (Auto) 7 H (2-6) % Eos % (Auto) 3 (2-4) % Baso % (Auto) 0 (0-1) % Sodium 137 L (140-148) mmol/L Potassium 3.8 (3.6-5.2) mmol/L Chloride 104 (100-108) mmol/L Carbon Dioxide 23 (21-32) mmol/L Anion Gap 13.8 (5.0-14.0) mmol/L BUN 8 (7-18) mg/dL Creatinine 0.7 (0.6-1.0) mg/dL Est Cr Clr Drug Dosing 92.79 mL/min Estimated GFR (MDRD) > 60 (>60) Glucose 99 (74-106) mg/dL Calcium 8.6 (8.5-10.1) mg/dL Total Bilirubin 0.2 (0.2-1.0) mg/dL AST 10 L (15-37) U/L ALT 24 (12-78) U/L Alkaline Phosphatase 76 (46-116) U/L C-Reactive Protein 2.10 H (0.0-0.3) mg/dL Total Protein 7.4 (6.4-8.2) g/dL Albumin 3.3 L (3.4-5.0) g/dL Globulin 4.1 H (2.3-3.5) g/dL Albumin/Globulin Ratio 0.8 L (1.2-2.2) Meds: Medications Generic Name Dose Route Start Last Admin Trade Name Corey PRN Reason Stop Dose Admin Sodium Chloride 10 ml 08/03/19 15:30 08/03/19 16:57 Saline Flush FLUSH 10 ml ASDIRECTED PRN Administration Keep Vein Open Discontinued Medications Generic Name Dose Route Start Last Admin Trade Name Corey PRN Reason Stop Dose Admin Ampicillin Sodium/Sulbactam 100 mls @ 200 mls/hr 08/03/19 15:30 08/03/19 16:04 Sodium 3 gm/ Sodium Chloride IV 08/03/19 15:59 200 mls/hr ONETIME ONE Administration Ketorolac Tromethamine 30 mg 08/03/19 16:50 08/03/19 16:55 Toradol IVPUSH 08/03/19 16:51 30 mg ONETIME ONE Administration Lidocaine/Epinephrine 10 ml 08/03/19 17:36 Xylocaine 1% With Epinephrine 1:100,000 SUBCUT 08/03/19 17:37 ONETIME ONE Departure - Departure Time of Disposition: 18:18 Disposition: Home, Self-Care 01 Clinical Impression: Cellulitis and abscess of upper extremity, H/O intravenous drug use in remission - Discharge Information Prescriptions: Amoxicillin/Clavulanate K [Augmentin 875-125 MG] 1 tab PO BID 10 Days #20 tablet Ibuprofen 600 mg PO Q6H PRN 20 Days #40 tablet PRN Reason: Pain Naproxen 500 mg PO Q8H PRN #30 tablet PRN Reason: Pain Instructions: Skin Abscess, Cellulitis, Adult Referrals: PCP,None [Primary Care Provider] - Forms: ED Department Discharge Additional Instructions: 1. ANTIBIOTIC DIRECTED. AUGMENTIN 2. TYLENOL 500-1000 MG EVERY 6-8 HOURS FOR PAIN AND FEVER. 3. NAPROXEN 500mg every 8-12 hours x 5-7 days then titrate down to Ibuprofen 600-800 DIRECTED with food FOR FEVER, PAIN AND SWELLING. 4. MAY APPLY WARM COMPRESS TO INCREASE BLOOD FLOW TO AREA FOR ANTIBIOTIC. 5. CALL DR Marcano for follow-up this week to ensure improving and further surgical intervention not needed to ensure infection resolution. 6. RETURN FOR REPEAT EVALUATION IF WORSENING SYMPTOMS, INCREASING INFECTION (REDNESS/SWELLING/STREAKING/PAIN/DRAINAGE), FEVER, CONCERNS OR CHANGES. 7. Remove dressing every am and pm. Wash with soap and water. Move packing loop 3-4 times per day to help keep the area open and draining infection. Discharge Instructions Cellulitis Cellulitis is an infection of the skin that occurs when bacteria enter the skin. Symptoms are generally redness, swelling, warmth and pain. Your infection appeared to be appropriate to treat at home with antibiotics. However, sometimes your infection may be worse than it seemed at first, or may worsen with time. If you have new or worse symptoms, you may need to be seen again in the Emergency Department or by your primary provider. Please follow-up as instructed by your provider today. Return to the clinic or Emergency Department if: The redness, pain, or swelling gets a lot worse. If the red area was marked, return if it is red significantly beyond the marked area. You are unable to get your antibiotics, or are vomiting (throwing up) these pills, or you cannot take them. You are feeling more ill, weak or lightheaded. You start to run a new fever (temperature >101F). Anything else about the infection worries or concerns you. Treatment: Start your antibiotics right away, and take them as prescribed. Be sure to finish the whole prescription, even if you are better. Apply a heating pad, warm packs, or warm water soaks to the infected area for 15 minutes at a time, at least 3 times a day. Do not use a heating pad on your feet or legs if you have diabetes. Do not sleep with a heating pad on, since this can cause paula or skin injury. Rest your injured area for at least 1-2 days. After that you may start using your extremity again as long as there is not too much pain. Raise the injured area above the level of your heart as much as possible in the first 1-2 days. Tylenol (acetaminophen), Motrin (ibuprofen), or Advil (ibuprofen) may help may help reduce pain and fever and may help you feel more comfortable. Be sure to read and follow the package directions, and ask your provider if you have questions. If you were given a prescription for medicine here today, be sure toread all of the information (including the package insert) that comes with your prescription. This will include important information about the medicine, its side effects, and any warnings that you need to know about. The pharmacist who fills the prescription can provide more information and answer questions you may have about the medicine. If you have questions or concerns that the pharmacist cannot address, please call or return to the Emergency Department. Remember that you can always come back to the Emergency Department if you are not able to see your regular provider in the amount of time listed above, if you get any new symptoms, or if there is anything that worries you. Sepsis Event Note (ED) - Focused Exam Vital Signs: Vital Signs Temp Pulse Resp BP Pulse Ox 08/03/19 15:11 36.0 C L 80 12 115/67 99 08/03/19 14:56 36.0 C L 80 12 115/67 99 - My Orders Last 24 Hours: My Active Orders 08/03/19 15:29 Peripheral IV Insertion Adult [OM.PC] Urgent 08/03/19 15:30 Peripheral IV Care [RC] . DIRECTED Sodium Chloride 0.9% [Saline Flush] 10 ml FLUSH ASDIRECTED PRN - Assessment/Plan Last 24 Hours: My Active Orders 08/03/19 15:29 Peripheral IV Insertion Adult [OM.PC] Urgent 08/03/19 15:30 Peripheral IV Care [RC] . DIRECTED Sodium Chloride 0.9% [Saline Flush] 10 ml FLUSH ASDIRECTED PRN
[2019-08-03] MEDS ORDERED: Ampicillin/Sulbactam Na 3 GM in Sodium Chloride 0.9% 100 ML IV ONE (15:30)
[2019-08-03] MEDS: Sodium Chloride 0.9% 10 ML Syringe FLUSH PRN ×3 (16:00→16:57)
[2019-08-03] MEDS ORDERED: Ketorolac 30 MG/ML SDV IVPUSH ONE (16:50)
[2019-08-03] MEDS ORDERED: Lidocaine 1% with EPINEPHrine 1:100,000 50 ML MDV SUBCUT ONE (17:36)
== END 2019-08-03 18:33 | disposition home or self-care (01) ==
LOC: JP.ED 13:58
DX: L02.413 Cutaneous abscess of right upper limb (principal); L03.113 Cellulitis of right upper limb; E66.9 Obesity, unspecified; Z68.33 Body mass index [BMI] 33.0-33.9, adult
CPT/HCPCS: 10061; 36415; 80053; 85025; 86140; 87070; 87077; 87205; 96365; 96375; 99283; J0295; J1885; J7050; 10060; 99284

== ENCOUNTER 2019-08-05 19:23 | Emergency (ER) | payer MEDICAID ==
--- NOTE | 2019-08-05 20:09 | EDM.PDOC ---
ED HPI GENERAL MEDICAL PROBLEM - General Chief Complaint: General Stated Complaint: SWOLLEN ARM,BODY ACHES Time Seen by Provider: 08/05/19 20:09 Source of Information: Reports: Patient History Limitations: Reports: No Limitations - History of Present Illness INITIAL COMMENTS - FREE TEXT/NARRATIVE: 33 years old female patient presented to the ER with chief complaint of nausea vomiting and fever. Patient was seen 2 days ago for abscess of the right upper extremity. Had incision and drainage. Started on Bactrim and Augmentin. Patient was discharged home. Patient stated since then she has been having fever and chills. Highest temp 102.6 yesterday. 101 today. She has been vomiting and can't keep her medication down. Denies any cough. Denies any chest pain shortness breath. Denies any abdominal pain diarrhea or constipation. Denies any urinary symptom. 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 Unable to obtain if it was a suicide attempt. 05/09/2016 Endocrine/Metabolic History: Reports: Obesity/BMI 30+ - Infectious Disease History Infectious Disease History: Reports: Chicken Pox - Past Surgical History Head Surgeries/Procedures: Reports: None HEENT Surgical History: Reports: Eye Surgery Dermatological Surgical History: Reports: Other (See Below) Social & Family History - Caffeine Use Caffeine Use: Reports: Soda ED ROS GENERAL - Review of Systems Review Of Systems: Comprehensive ROS is negative, except as noted in HPI. ED EXAM, GENERAL - Physical Exam Exam: See Below Exam Limited By: No Limitations General Appearance: Alert, WD/WN, No Apparent Distress Head: Atraumatic, Normocephalic Neck: Normal Inspection, Supple, Non-Tender, Full Range of Motion Respiratory/Chest: No Respiratory Distress, Lungs Clear, Normal Breath Sounds, No Accessory Muscle Use, Chest Non-Tender Cardiovascular: Normal Peripheral Pulses, No Edema, No Gallop, No JVD, No Murmur, No Rub, Tachycardia GI/Abdominal: Normal Bowel Sounds, Soft, Non-Tender, No Organomegaly, No Distention, No Abnormal Bruit, No Mass Back Exam: Normal Inspection, Full Range of Motion, NT Extremities: Other (Erythema, swelling and tenderness of the right forearm. Packing in place.) Course - Vital Signs Last Recorded V/S: Last Vital Signs Temp 36.6 C 08/05/19 20:12 Pulse 94 08/05/19 22:26 Resp 16 08/05/19 22:26 BP 94/65 08/05/19 22:26 Pulse Ox 97 08/05/19 22:26 - Orders/Labs/Meds Orders: Active Orders 24 hr Category Date Time Status CULTURE BLOOD [BC] Urgent Lab 08/05/19 20:16 Received CULTURE BLOOD [BC] Urgent Lab 08/05/19 20:32 Received Vancomycin 1 gm Med 08/05/19 21:55 Active Sodium Chloride 0.9% [Normal Saline] 250 ml IV ONETIME Blood Culture x2 Reflex Set [OM.PC] Urgent Oth 08/05/19 20:14 Ordered Medication Orders Vancomycin HCl 1 gm/ Sodium (Chloride) 250 mls @ 150 mls/hr IV ONETIME ONE Stop: 08/05/19 23:34 Last Admin: 08/05/19 22:19 Dose: 150 mls/hr Documented by: THELMA Labs: Laboratory Tests 08/05/19 08/05/19 08/05/19 Range/Units 20:32 20:32 20:32 WBC 6.6 (4.5-11.0) K/uL RBC 4.88 (3.30-5.50) M/uL Hgb 14.0 (12.0-15.0) g/dL Hct 42.4 (36.0-48.0) % MCV 87 (80-98) fL MCH 29 (27-31) pg MCHC 33 (32-36) % Plt Count 288 (150-400) K/uL Neut % (Auto) 79 H (36-66) % Lymph % (Auto) 6 L (24-44) % [place] % (Auto) 3 (2-6) % Eos % (Auto) 11 H (2-4) % Baso % (Auto) 0 (0-1) % Sodium 132 L (140-148) mmol/L Potassium 4.1 (3.6-5.2) mmol/L Chloride 100 (100-108) mmol/L Carbon Dioxide 20 L (21-32) mmol/L Anion Gap 16.1 H (5.0-14.0) mmol/L BUN 10 (7-18) mg/dL Creatinine 1.1 H D (0.6-1.0) mg/dL Est Cr Clr Drug Dosing 59.05 mL/min Estimated GFR (MDRD) 57 L (>60) Glucose 216 H (74-106) mg/dL Lactic Acid 3.0 H (0.4-2.0) mmol/L Calcium 8.1 L (8.5-10.1) mg/dL C-Reactive Protein 8.94 H (0.0-0.3) mg/dL Meds: Medications Generic Name Dose Route Start Last Admin Trade Name Freq PRN Reason Stop Dose Admin Vancomycin HCl 1 gm/ Sodium 250 mls @ 150 mls/hr 08/05/19 21:55 08/05/19 22:19 Chloride IV 08/05/19 23:34 150 mls/hr ONETIME ONE Administration Discontinued Medications Generic Name Dose Route Start Last Admin Trade Name Freq PRN Reason Stop Dose Admin Acetaminophen 650 mg 08/05/19 20:46 08/05/19 20:50 Tylenol PO 08/05/19 20:47 650 mg NOW ONE Administration Sodium Chloride 1,000 mls @ 999 mls/hr 08/05/19 20:14 08/05/19 20:34 Normal Saline IV 08/05/19 21:14 999 mls/hr .BOLUS STA Administration Ceftriaxone Sodium 1 gm/ 50 mls @ 100 mls/hr 08/05/19 20:34 08/05/19 20:47 Sodium Chloride IV 08/05/19 21:03 100 mls/hr ONETIME ONE Administration Sodium Chloride 1,000 mls @ 999 mls/hr 08/05/19 21:56 08/05/19 22:19 Normal Saline IV 08/05/19 22:56 999 mls/hr .BOLUS STA Administration - Radiology Interpretation Free Text/Narrative:: Patient was seen and examined shortly after arrival. Stable. Given 1 L normal saline bolus. 1 g IV Rocephin. Lab reviewed. Concern about sepsis. Given a second liter of normal saline bolus. 1 g of IV vancomycin. We do not have any available beds. Case was discussed with Dr. Weller hospitalist validation engineer at the [facility] and he accepted the transfer for further management. Patient agrees with the plan. Stable for transfer. Departure - Departure Time of Disposition: 23:21 Disposition: DC/Tfer to Acute Hospital 02 Condition: Good Clinical Impression: Sepsis, Abscess - Discharge Information Referrals: PCP,None [Primary Care Provider] - Forms: ED Department Discharge Sepsis Event Note (ED) - Focused Exam Vital Signs: Vital Signs Temp Pulse Resp BP Pulse Ox 08/05/19 22:26 94 16 94/65 97 08/05/19 20:12 36.6 C 103 H 16 137/74 98 08/05/19 20:02 36.6 C 103 H 16 137/74 98 - My Orders Last 24 Hours: My Active Orders 08/05/19 20:14 Blood Culture x2 Reflex Set [OM.PC] Urgent 08/05/19 20:16 CULTURE BLOOD [BC] Urgent 08/05/19 20:32 CULTURE BLOOD [BC] Urgent 08/05/19 21:55 Vancomycin 1 gm Sodium Chloride 0.9% [Normal Saline] 250 ml IV ONETIME - Assessment/Plan Last 24 Hours: My Active Orders 08/05/19 20:14 Blood Culture x2 Reflex Set [OM.PC] Urgent 08/05/19 20:16 CULTURE BLOOD [BC] Urgent 08/05/19 20:32 CULTURE BLOOD [BC] Urgent 08/05/19 21:55 Vancomycin 1 gm Sodium Chloride 0.9% [Normal Saline] 250 ml IV ONETIME Plan: Transferred to [place]
[2019-08-05] MEDS ORDERED: Sodium Chloride 0.9% 1,000 ML IV STA ×2 (20:14→21:56)
[2019-08-05] MEDS ORDERED: cefTRIAXone 1 GM in Sodium Chloride 0.9% 50 ML IV ONE (20:34)
[2019-08-05] MEDS ORDERED: Acetaminophen 325 MG Tab PO ONE (20:46)
[2019-08-05 23:56] VITALS: BP 91/51; PULSE 83
== END 2019-08-06 00:25 ==
LOC: JP.ED 19:23
DX: A41.9 Sepsis, unspecified organism (principal); L02.413 Cutaneous abscess of right upper limb; E66.9 Obesity, unspecified; Z68.32 Body mass index [BMI] 32.0-32.9, adult
CPT/HCPCS: 36415; 80048; 83605; 85025; 86140; 87040; 96365; 96367; 99285-25; A9270-GY; J0696; J3370; J7030; J7050

== ENCOUNTER 2020-11-12 11:06 | Emergency (ER) | payer MEDICAID ==
[2020-11-12 11:30] VITALS: BP 131/87; PULSE 91
--- NOTE | 2020-11-12 11:49 | EDM.PDOCBH ---
ED HPI GENERAL MEDICAL PROBLEM - General Chief Complaint: Drug or Alcohol Abuse [facility] Time Seen by Provider: 11/12/20 11:35 Source of Information: Reports: Patient, Old Records, RN History Limitations: Reports: No Limitations - History of Present Illness INITIAL COMMENTS - FREE TEXT/NARRATIVE: 34 yo NA female presents for medical clearance before entering [place]. Uses primarily methamphetamine. Her last usage was 2 d ago. Denies alcohol use. Was last at [place] about a yr ago. Onset: Unknown/Unsure Duration: Chronic Location: Reports: Generalized Quality: Reports: Other (pain not reported) Severity: Moderate Improves with: Reports: None Worsens with: Reports: None Context: Reports: Other (See hPI) Associated Symptoms: Reports: No Other Symptoms Treatments [employer] WE[employer]HER: Reports: Other (see below) (none) - Related Data Allergies Allergy/AdvReac Type Severity Reaction Status Date / Time No Known Allergies Allergy Verified 11/12/20 11:31 Home Meds: Home Meds NK [No Known Home Meds] 11/12/20 [History] Past Medical History HEENT History: Reports: Impaired Vision [employer] History: Reports: Psychiatric History: Reports: Addiction, Anxiety, Bipolar, Depression, Panic Attack, Psych Hospitalization(s), Suicide Attempt, Suicidal Ideation Other Psychiatric History: She was at [facility] not to long ago. Unable to obtain if it was a suicide attempt. 05/09/2016 Endocrine/Metabolic History: Reports: Obesity/BMI 30+ Dermatologic History: Reports: Cellulitis - Infectious Disease History Infectious Disease History: Reports: Chicken Pox - Past Surgical History Head Surgeries/Procedures: Reports: None HEENT Surgical History: Reports: Eye Surgery Endocrine Surgical History: Reports: None Dermatological Surgical History: Reports: Other (See Below) Social & Family History - Tobacco Use Tobacco Use Status *Q: Current Every Day Tobacco User Years of Tobacco use: 15 Packs/Tins Daily: 0.3 Used Tobacco, but Quit: No Second Hand Smoke Exposure: Yes - Caffeine Use Caffeine Use: Reports: Soda - Alcohol Use Days Per Week of Alcohol Use: 7 Number of Drinks Per Day: 2 Total Drinks Per Week: 14 - Recreational Drug Use Recreational Drug Use: Yes Drug Use in Last 12 Months: Yes Recreational Drug Type: Reports: Fentanyl, Heroin, Methamphetamine Recreational Drug Use Frequency: Daily ED ROS GENERAL - Review of Systems Review Of Systems: See Below Constitutional: Reports: No Symptoms HEENT: Reports: No Symptoms Respiratory: Reports: No Symptoms Cardiovascular: Reports: Lightheadedness (at times) Endocrine: Reports: No Symptoms GI/Abdominal: Reports: Nausea (recent, not now), Vomiting (not today). Denies: Diarrhea Musculoskeletal: Reports: No Symptoms Skin: Reports: No Symptoms Neurological: Reports: No Symptoms Psychiatric: Reports: No Symptoms ED EXAM, BEHAVIORAL HEALTH - Physical Exam Exam: See Below Exam Limited By: No Limitations General Appearance: Alert, WD/WN, No Apparent Distress, Obese Eye Exam: Bilateral Eye: Normal Inspection Ears: Normal External Exam, Normal Canal, Hearing Grossly Normal, Normal TMs Nose: Normal Inspection, No Blood Throat/Mouth: Normal Inspection, Normal Lips, Normal Oropharynx, Normal Voice, No Airway Compromise Head: Atraumatic, Normocephalic Neck: Normal Inspection Respiratory/Chest: No Respiratory Distress, Lungs Clear, Normal Breath Sounds, No Accessory Muscle Use Cardiovascular: Regular Rate, Rhythm, No Edema GI/Abdominal: Soft, Non-Tender, No Distention. No: Distended Back Exam: Normal Inspection. No: CVA Tenderness (R), CVA Tenderness (L) Extremities: Normal Inspection, Normal Range of Motion, Non-Tender, No Pedal Edema Neurological: Alert, Normal Mood/Affect, CN II-XII Intact, Normal Cognition, No Motor/Sensory Deficits, Oriented x 3 Psychiatric: Alert, Normal Affect, Normal Cognition, Normal Mood, Oriented Skin Exam: Warm, Dry, Intact, Normal color, No rash COURSE, BEHAVIORAL HEALTH COMP - Course Vital Signs: Last Vital Signs Temp 35.9 C L 11/12/20 11:32 Pulse 91 11/12/20 11:32 Resp 15 11/12/20 11:32 BP 131/87 11/12/20 11:32 Pulse Ox 100 11/12/20 11:32 Orders, Labs, Meds: Laboratory Tests 11/12/20 11/12/20 11/12/20 Range/Units 11:29 11:35 11:48 Urine Opiates Screen Negative (NEGATIVE) Ur Oxycodone Screen Negative (NEGATIVE) Urine Methadone Screen Negative (NEGATIVE) Ur Propoxyphene Screen Negative (NEGATIVE) Ur Barbiturates Screen Negative (NEGATIVE) Ur Tricyclics Screen Negative (NEGATIVE) Ur Phencyclidine Scrn Negative (NEGATIVE) Ur Amphetamine Screen Presumptive positive H (NEGATIVE) U Methamphetamines Scrn Presumptive positive H (NEGATIVE) Urine MDMA Screen Negative (NEGATIVE) U Benzodiazepines Scrn Negative (NEGATIVE) U Cocaine Metab Screen Negative (NEGATIVE) U Marijuana (THC) Screen Presumptive positive H (NEGATIVE) Ethyl Alcohol 3 mg/dL SARS CoV-2 RNA Rapid ROMMEL Negative Departure - Departure Time of Disposition: 12:30 Disposition: DC/Tfer to Other 70 Condition: Fair Clinical Impression: Methamphetamine abuse, Marijuana smoker - Discharge Information *PRESCRIPTION DRUG MONITORING PROGRAM REVIEWED*: Not Applicable *COPY OF PRESCRIPTION DRUG MONITORING REPORT IN PATIENT NEFTALI: Not Applicable Referrals: PCP,None [Primary Care Provider] - Forms: ED Department Discharge Sepsis Event Note (ED) - Focused Exam Vital Signs: Vital Signs Temp Pulse Resp BP Pulse Ox 11/12/20 11:32 35.9 C L 91 15 131/87 100 11/12/20 11:28 35.9 C L 91 15 131/87 100
== END 2020-11-12 13:00 | disposition other institution (70) ==
LOC: JP.ED 11:06
DX: F12.10 Cannabis abuse, uncomplicated (principal); F15.10 Other stimulant abuse, uncomplicated; E66.9 Obesity, unspecified; Z68.34 Body mass index [BMI] 34.0-34.9, adult; Z72.0 Tobacco use; Z20.822 Contact with and (suspected) exposure to COVID-19
CPT/HCPCS: 36415; 80305-QW; 80307; 99284; U0002

== ENCOUNTER 2022-01-21 10:41 | Emergency (ER) | payer MEDICAID ==
[2022-01-21 10:53] VITALS: BP 153/90; PULSE 103
[2022-01-21 11:30] LABS: CORONAVIRUS COVID-19 NAA NEGATIVE (NEGATIVE)
== END 2022-01-21 11:47 | disposition home or self-care (01) ==
LOC: JP.ED 10:41
DX: J10.1 Influenza due to other identified influenza virus with other respiratory manifestations (principal); F17.210 Nicotine dependence, cigarettes, uncomplicated; E66.9 Obesity, unspecified; Z68.34 Body mass index [BMI] 34.0-34.9, adult; Z20.822 Contact with and (suspected) exposure to COVID-19
CPT/HCPCS: 0241U; 99283

== ENCOUNTER 2023-10-23 19:07 | Emergency (ER) | payer MEDICAID ==
[2023-10-23 19:38] VITALS: BP 121/73; PULSE 57
[2023-10-23] MEDS: Bupivacaine 0.5% 10 ML SDV INJECT ONE (20:46)
== END 2023-10-23 21:12 | disposition home or self-care (01) ==
LOC: JP.ED 19:07
DX: K02.9 Dental caries, unspecified (principal); E66.9 Obesity, unspecified; F17.210 Nicotine dependence, cigarettes, uncomplicated; Z68.33 Body mass index [BMI] 33.0-33.9, adult
CPT/HCPCS: 64400; 99282; J0665

== ENCOUNTER 2024-02-19 10:36 | Emergency (ER) | payer MEDICAID ==
[2024-02-19 10:48] VITALS: BP 119/79; PULSE 105
[2024-02-19] MEDS: Ketorolac 30 MG/ML SDV IM ONE (11:14)
== END 2024-02-19 11:21 | disposition home or self-care (01) ==
LOC: JP.ED 10:36
DX: L03.113 Cellulitis of right upper limb (principal); E66.9 Obesity, unspecified; Z68.35 Body mass index [BMI] 35.0-35.9, adult; F17.210 Nicotine dependence, cigarettes, uncomplicated; Z79.899 Other long term (current) drug therapy
CPT/HCPCS: 96372; 99283; J1885

== ENCOUNTER 2024-03-05 14:02 | Emergency (ER) | payer MEDICAID ==
[2024-03-05 14:42] VITALS: BP 140/83; PULSE 119
[2024-03-05] MEDS: Proparacaine 0.5% Ophth Soln 15 ML Bottle EYELF ONE (14:51)
[2024-03-05] MEDS: Dexamethasone/Neomycin/Polymyxin B Ophth Susp 5 ML Bottle EYELF ONE (14:52)
== END 2024-03-05 15:25 | disposition home or self-care (01) ==
LOC: JP.ED 14:02
DX: H10.212 Acute toxic conjunctivitis, left eye (principal); E66.9 Obesity, unspecified; Z68.35 Body mass index [BMI] 35.0-35.9, adult; F17.210 Nicotine dependence, cigarettes, uncomplicated; Z79.899 Other long term (current) drug therapy
CPT/HCPCS: 99283; A9270-GY

== ENCOUNTER 2024-04-05 16:08 | Emergency (ER) | payer MEDICAID ==
[2024-04-05 17:00] VITALS: BP 121/83; PULSE 115
[2024-04-05] MEDS: Codeine/guaiFENesin 10-100 MG/5 ML Syrup 5 ML Cup PO ONE (19:53)
[2024-04-05] MEDS: Acetaminophen 500 MG Tab PO ONE (19:53)
[2024-04-05] MEDS: Albuterol/Ipratropium 3.0-0.5 MG/3 ML Neb Soln NEB ONE (19:53)
[2024-04-05 20:01] LABS: BASOPHILS ABSOLUTE AUTO 0.03 K/uL (0.00-0.10); BASOPHILS PERCENT AUTO 0.6 % (0.1-1.3); EOSINOPHILS ABSOLUTE AUTO 0.05 K/uL (0.00-0.40); EOSINOPHILS PERCENT AUTO 0.9 % (0.0-5.4); HEMATOCRIT 44.1 % (34.3-46.0); HEMOGLOBIN 15.2 g/dL (11.2-15.5); IMMATURE GRAN ABSOLUTE AUTO 0.03 K/uL (0.00-0.23); IMMATURE GRAN PERCENT AUTO 0.6 % (0.0-0.7); LYMPHOCYTES PERCENT AUTO 44.8 % (11.4-47.7); MEAN CORPUSCULAR HEMOGLOBIN 31.9 pg (31.6-35.5); MEAN CORPUSCULAR HGB CONC 34.5 g/dL (31.6-35.5); MEAN CORPUSCULAR VOLUME 92.5 fL (81.4-99.0); MONOCYTES ABSOLUTE AUTO 0.44 K/uL (0.20-0.90); MONOCYTES PERCENT AUTO 8.2 % (3.3-12.6); NEUTROPHILS ABSOLUTE AUTO 2.41 K/uL (1.0-7.6); NEUTROPHILS PERCENT AUTO 44.9 % (40.0-78.1); PLATELET COUNT,PLT 228 K/uL (130-375); RED BLOOD CELL COUNT 4.77 M/uL (3.77-5.24); WHITE BLOOD CELL COUNT,WBC 5.4 K/uL (3.2-11.0)
[2024-04-05] MEDS: cefTRIAXone 2 GM AdvVial IV ONE (20:09)
[2024-04-05] MEDS: Sodium Chloride 0.9% 0 ML ONE ×2 (20:09)
[2024-04-05] MEDS: cefTRIAXone 2 GM in Sodium Chloride 0.9% 50 ML IV ONE (20:13)
[2024-04-05 20:22] LABS: A/G RATIO 1.1 (1.2-2.2); ALANINE AMINOTRANSFERASE,ALT 36 U/L (12-78); ALBUMIN 3.9 g/dL (3.4-5.0); ALKALINE PHOSPHATASE 93 U/L (46-116); ANION GAP 9.1 mmol/L (5.0-14.0); ASPARTATE AMNIOTRANSFERASE,AST 21 U/L (15-37); BILIRUBIN TOTAL 0.3 mg/dL (0.2-1.0); BLOOD UREA NITROGEN,BUN 7 mg/dL (7-18); CALCIUM 8.7 mg/dL (8.5-10.1); CARBON DIOXIDE,CO2 30 mmol/L (21-32); CHLORIDE,CL 102 mmol/L (100-108); EST CRCL DRUG DOSING (CG) 61.86 mL/min; ESTIMATED GFR 73 mL/min (>60); GLUCOSE RANDOM 93 mg/dL (74-106); POTASSIUM,K 3.6 mmol/L (3.6-5.2); PROTEIN TOTAL,TP 7.5 g/dL (6.4-8.2); SODIUM,NA 141 mmol/L (140-148)
[2024-04-05] MEDS: Sodium Chloride 0.9% 500 ML IV SCH (20:22)
[2024-04-05] MEDS: Levofloxacin/Dextrose 5%-Water 750 MG in Premix Bag 1 BAG IV SCH (20:22)
[2024-04-05] MEDS: methylPREDNISolone Sodium Succinate 125 MG/2 ML SDV IM ONE (22:05)
[2024-04-05] MEDS: methylPREDNISolone Sodium Succinate 125 MG/2 ML SDV IVPUSH ONE (22:09)
== END 2024-04-05 22:11 | disposition home or self-care (01) ==
LOC: JP.ED 16:08
DX: J40 Bronchitis, not specified as acute or chronic (principal); Z79.899 Other long term (current) drug therapy
CPT/HCPCS: 36415; 71046; 80053; 83605; 84145; 85025; 87040; 87428; 96365; 96375; 99285; A9270; J1956; J2919; J7620

== ENCOUNTER 2024-06-26 02:06 | Emergency (ER) | payer MEDICAID ==
[2024-06-26 02:16] VITALS: BP 138/79; PULSE 88
[2024-06-26 02:32] LABS: BASOPHILS ABSOLUTE AUTO 0.05 K/uL (0.00-0.10); BASOPHILS PERCENT AUTO 0.9 % (0.1-1.3); EOSINOPHILS ABSOLUTE AUTO 0.26 K/uL (0.00-0.40); EOSINOPHILS PERCENT AUTO 4.8 % (0.0-5.4); HEMATOCRIT 45.3 % (34.3-46.0); HEMOGLOBIN 15.2 g/dL (11.2-15.5); IMMATURE GRAN PERCENT AUTO 0.2 % (0.0-0.7); LYMPHOCYTES ABSOLUTE AUTO 1.31 K/uL (0.8-3.3); LYMPHOCYTES PERCENT AUTO 23.9 % (11.4-47.7); MEAN CORPUSCULAR HGB CONC 33.6 g/dL (31.6-35.5); MEAN CORPUSCULAR VOLUME 89.5 fL (81.4-99.0); MONOCYTES PERCENT AUTO 5.5 % (3.3-12.6); NEUTROPHILS ABSOLUTE AUTO 3.54 K/uL (1.0-7.6); NEUTROPHILS PERCENT AUTO 64.7 % (40.0-78.1); PLATELET COUNT,PLT 288 K/uL (130-375); RED BLOOD CELL COUNT 5.06 M/uL (3.77-5.24); WHITE BLOOD CELL COUNT,WBC 5.5 K/uL (3.2-11.0)
[2024-06-26 02:35] LABS: AMPHETAMINES SCREEN, URINE PRESUMPTIVE POSITIVE (NEGATIVE); BARBITURATE SCREEN,URINE NEGATIVE (NEGATIVE); BENZODIAZEPINES SCREEN,URINE NEGATIVE (NEGATIVE); METHADONE SCREEN, URINE NEGATIVE (NEGATIVE); METHAMPHETAMINES SCREEN, URINE PRESUMPTIVE POSITIVE (NEGATIVE); OXYCODONE SCREEN,URINE NEGATIVE (NEGATIVE); PROPOXYPHENE SCREEN,URINE NEGATIVE (NEGATIVE); THC SCREEN,URINE 50 NG/ML NEGATIVE (NEGATIVE)
[2024-06-26 02:36] LABS: IMMATURE GRAN ABSOLUTE AUTO 0.01 K/uL (0.00-0.23)
[2024-06-26 02:52] LABS: ALANINE AMINOTRANSFERASE,ALT 32 U/L (12-78); ALBUMIN 3.8 g/dL (3.4-5.0); ALKALINE PHOSPHATASE 85 U/L (46-116); ASPARTATE AMNIOTRANSFERASE,AST 20 U/L (15-37); BILIRUBIN TOTAL 0.7 mg/dL (0.2-1.0); BLOOD UREA NITROGEN,BUN 9 mg/dL (7-18); CALCIUM 9.2 mg/dL (8.5-10.1); CARBON DIOXIDE,CO2 26 mmol/L (21-32); CHLORIDE,CL 103 mmol/L (100-108); CREATININE 0.9 mg/dL (0.6-1.0); ESTIMATED GFR 83 mL/min (>60); GLUCOSE RANDOM 126 mg/dL (74-106); POTASSIUM,K 3.5 mmol/L (3.6-5.2); PROTEIN TOTAL,TP 7.6 g/dL (6.4-8.2); SODIUM,NA 142 mmol/L (140-148)
[2024-06-26 02:53] LABS: ANION GAP 16.5 mmol/L (5.0-14.0)
[2024-06-26] MEDS: diazePAM 5 MG Tab PO ONE (03:26)
== END 2024-06-26 04:24 | disposition other institution (70) ==
LOC: JP.ED 02:06
DX: F11.10 Opioid abuse, uncomplicated (principal); F15.10 Other stimulant abuse, uncomplicated; F17.200 Nicotine dependence, unspecified, uncomplicated; Z79.899 Other long term (current) drug therapy
CPT/HCPCS: 36415; 80053; 80305; 80307; 85025; 99284; A9270